=== PATIENT | female | born 1955 | race Caucasian/White ===

== ENCOUNTER 2018-01-09 16:38 | Inpatient (IN) | payer OTHER ==
[~2018-01-09] VITALS: Ht 170.2 cm; Wt 117.5 kg
[2018-01-09 18:41] LABS: Basophils # (auto) 0 uL; Basophils % (auto) 0.5 % (0.0-2.0); Eosinophils # (auto) 0.1 uL; Nucleated Red Blood Cells % 0.1 %
[2018-01-09 18:43] LABS: Eosinophils % (auto) 0.9 % (0.0-7.0); Hematocrit 38.5 % (36.0-46.0); Hemoglobin 13.5 g/dL (12.2-16.2); Lymphocytes # (auto) 1.6 uL; Lymphocytes % (auto) 14.9 % (10.0-50.0); Mean Corpuscular Hemoglobin 34.5 pg (28.0-32.0); Mean Corpuscular Volume 98.6 fL (80.0-100.0); Monocytes % (auto) 9.7 % (0.0-12.0); Neutrophils # (auto) 7.8 uL; Platelet Count (auto) 144 10^3/uL (140-450); White Blood Cell 10.5 10^3/uL (4.4-10.8)
[2018-01-09 18:53] LABS: Alanine Aminotransferase 35 U/L (13-56); Albumin 3.8 g/dL (3.4-5.0); Anion Gap 13 (5-15); Aspartate Aminotransferase 31 U/L (15-37); BUN/Creatinine Ratio 22.5; Blood Urea Nitrogen 20 mg/dL (7-18); Calcium 9.1 mg/dL (8.5-10.1); Carbon Dioxide 22 mmol/L (21-32); Chloride 107 mmol/L (98-107); GFR African American 83 mL/min; GFR Non-African American 68 mL/min; Glucose 88 mg/dL (74-106); Magnesium 2.1 mg/dL (1.6-2.6); Potassium 3.4 mmol/L (3.5-5.1); Sodium 142 mmol/L (136-145)
[2018-01-09 18:58] LABS: Alkaline Phosphatase 128 U/L (45-117); Bilirubin, Total 1.2 mg/dL (0.2-1.0); Total Protein 7.9 g/dL (6.4-8.2)
[2018-01-09] MEDS ORDERED: ONDANSETRON HCL 4 MG/2 ML VIAL IV ONE (21:15)
[2018-01-09] MEDS ORDERED: MORPHINE SULFATE 8mg/ml INJ SDV IV ONE (21:15)
[2018-01-09] MEDS ORDERED: KETOROLAC TROMETH 30 MG/ML 1ML VIAL ONE (21:21)
[2018-01-09] MEDS ORDERED: DOCUSATE SOD 100 MG CAP PO PRN (21:30)
[2018-01-09] MEDS ORDERED: MORPHINE SULF(PF) 0.5MG/ML 10ML VIAL IV PRN (21:30)
[2018-01-09] MEDS ORDERED: ONDANSETRON HCL 4 MG/2 ML VIAL IV PRN (21:30)
[2018-01-09] MEDS ORDERED: NITROGLYCERIN 0.4 MG SL TAB SL PRN (21:30)
[2018-01-09] MEDS ORDERED: TEMAZEPAM 15 MG CAP PO PRN (21:30)
[2018-01-09] MEDS ORDERED: ACETAMINOPHEN 325 MG TAB PO PRN (21:30)
[2018-01-09] MEDS: METOPROLOL TARTRATE 50 MG TAB PO SCH ×2 (21:40→22:31)
[2018-01-09] MEDS ORDERED: KETOROLAC TROMETH 30 MG/ML 1ML VIAL IV ONE (21:45)
[2018-01-09] MEDS: GEMFIBROZIL 600 MG TAB PO SCH (21:51)
[2018-01-09] MEDS: ENOXAPARIN SOD 40 MG/0.4 ML SYRINGE SC SCH (21:52)
[2018-01-09] MEDS: FAMOTIDINE 20 MG TAB PO SCH (21:52)
[2018-01-09] MEDS ORDERED: CARVEDILOL 3.125 MG TAB PO SCH (22:00)
[2018-01-09 22:13] LABS: Cholesterol 173 mg/dL (< 200); HDL Cholesterol 40 mg/dL (40-59); LDL Cholesterol 118 mg/dL (< 100); Triglycerides 154 mg/dL (< 150)
[2018-01-09 23:28] VITALS: BP 128/68
[2018-01-10] MEDS ORDERED: POTA10TA51 PO (00:05)
[2018-01-10] MEDS ORDERED: METO-158 PO (00:05)
[2018-01-10] MEDS ORDERED: HYDR25TA4 PO (00:05)
[2018-01-10] MEDS ORDERED: CHOL20007 PO (00:05)
[2018-01-10] MEDS ORDERED: GEMF600T3 PO (00:05)
[2018-01-10] MEDS ORDERED: SIMV-8 PO (00:05)
[2018-01-10] MEDS ORDERED: LEVO137T3 PO (00:05)
[2018-01-10] MEDS ORDERED: FLUO-125 PO (00:05)
[2018-01-10] MEDS: HYDROcodone-ACET 5/325MG TAB PO PRN ×4 (04:23→21:52)
[2018-01-10 04:52] VITALS: BP 104/58
[2018-01-10 06:06] LABS: Basophils # (auto) 0 uL; Eosinophils # (auto) 0.1 uL; Lymphocytes # (auto) 1.6 uL; Mean Corpuscular Hgb Conc. 34.4 g/dL (32.0-36.0); Monocytes # (auto) 0.7 uL; Red Blood Cells 3.78 10^6/uL (4.0-5.20); Red Cell Distribution Width 12.9 % (11.8-14.3)
[2018-01-10 06:09] LABS: Basophils % (auto) 0.4 % (0.0-2.0); Eosinophils % (auto) 1.5 % (0.0-7.0); Hematocrit 37.6 % (36.0-46.0); Hemoglobin 12.9 g/dL (12.2-16.2); Lymphocytes % (auto) 22.1 % (10.0-50.0); Mean Corpuscular Hemoglobin 34.2 pg (28.0-32.0); Mean Corpuscular Volume 99.3 fL (80.0-100.0); Monocytes % (auto) 9.3 % (0.0-12.0); Neutrophils # (auto) 4.8 uL; Neutrophils % (auto) 66.7 % (37.0-80.0); Nucleated Red Blood Cells % 0.1 %; Platelet Count (auto) 140 10^3/uL (140-450); White Blood Cell 7.2 10^3/uL (4.4-10.8)
[2018-01-10 06:21] LABS: Albumin 3.4 g/dL (3.4-5.0); Potassium 3.3 mmol/L (3.5-5.1)
[2018-01-10] MEDS: LEVOTHYROXINE SODIUM 112 MCG TAB PO SCH (06:35)
[2018-01-10] MEDS: LEVOTHYROXINE SODIUM 25 MCG TAB PO SCH (06:36)
[2018-01-10 06:46] LABS: Bilirubin, Total 1.1 mg/dL (0.2-1.0); Total Protein 7.2 g/dL (6.4-8.2)
[2018-01-10 08:00] VITALS: BP 111/68
[2018-01-10 08:44] VITALS: BP 111/68
[2018-01-10] MEDS: HCTZ 25 MG TAB PO SCH (09:31)
[2018-01-10] MEDS: FAMOTIDINE 20 MG TAB PO SCH ×2 (09:32→21:51)
[2018-01-10] MEDS: GEMFIBROZIL 600 MG TAB PO SCH ×2 (09:32→21:51)
[2018-01-10] MEDS: ASPirin 81 mg TAB PO SCH (09:32)
[2018-01-10] MEDS: METOPROLOL TARTRATE 50 MG TAB PO SCH ×2 (09:32→21:54)
[2018-01-10] MEDS ORDERED: LISINOPRIL 10 MG TAB PO SCH (10:00)
[2018-01-10] MEDS ORDERED: POTASSIUM CHL 20 Meq TABLET PO ONE (10:30)
[2018-01-10 12:34] VITALS: BP 120/74
[2018-01-10 17:00] VITALS: BP 105/52
[2018-01-10 21:45] VITALS: BP_SYST 100; BP_SYST 101; BP_DIAS 59
[2018-01-10] MEDS: ENOXAPARIN SOD 40 MG/0.4 ML SYRINGE SC SCH (21:51)
[2018-01-11 05:00] VITALS: BP 108/70
[2018-01-11] MEDS: LEVOTHYROXINE SODIUM 25 MCG TAB PO SCH (06:14)
[2018-01-11] MEDS: HYDROcodone-ACET 5/325MG TAB PO PRN ×2 (06:14→10:41)
[2018-01-11] MEDS: LEVOTHYROXINE SODIUM 112 MCG TAB PO SCH (06:15)
[2018-01-11 09:00] VITALS: BP 95/43
[2018-01-11 09:18] LABS: BUN/Creatinine Ratio 24.6; Calcium 9.6 mg/dL (8.5-10.1); Potassium 4.2 mmol/L (3.5-5.1)
[2018-01-11] MEDS: HCTZ 25 MG TAB PO SCH (10:00)
[2018-01-11] MEDS: FAMOTIDINE 20 MG TAB PO SCH (10:37)
[2018-01-11] MEDS: METOPROLOL TARTRATE 50 MG TAB PO SCH (10:38)
[2018-01-11] MEDS: ASPirin 81 mg TAB PO SCH (10:40)
[2018-01-11] MEDS: GEMFIBROZIL 600 MG TAB PO SCH (10:42)
[2018-01-11 13:00] VITALS: BP 110/71
== END 2018-01-11 12:55 | disposition home or self-care (01) | DRG 313 ==
LOC: EDBD 16:38 → ER 16:38 → TELE 16:39 → TELE-WESTW 22:50
PROVIDERS: ADMIT Nurse Practitioner; ATTEND Internal Medicine
DX: R07.89 Other chest pain (principal); Z68.41 Body mass index [BMI] 40.0-44.9, adult; E03.9 Hypothyroidism, unspecified; E66.9 Obesity, unspecified; E78.5 Hyperlipidemia, unspecified; I10 Essential (primary) hypertension; M10.9 Gout, unspecified; M54.9 Dorsalgia, unspecified; Z88.0 Allergy status to penicillin; Z79.899 Other long term (current) drug therapy; Z98.51 Tubal ligation status
CPT/HCPCS: 36415; 71045; 80048; 80053; 80061; 83735; 83880; 84443; 84484; 85025; 85379; 93306; 94761; 96374; 96375; J1885; J2405

== ENCOUNTER → 2022-10-31 | Outpatient (CLI) | payer OTHER ==
[~2022-10-31] MED LIST: CHOL20007 PO; FLUO-125 PO; GEMF-19 PO; HYDR25TA4 PO; LEVO137T3 PO; METO-158 PO; POTA10TA51 PO; SIMV-8 PO
[2022-10-31 08:52] LABS: Basophils # (auto) 0.1 10 ^3/uL (0-0.2); Basophils % (auto) 0.8 % (0.0-2.0); Eosinophils # (auto) 0.1 10 ^3/uL (0-0.8); Eosinophils % (auto) 0.7 % (0.0-7.0); Hematocrit 47.4 % (36.0-46.0); Hemoglobin 16.1 g/dL (12.2-16.2); Lymphocytes # (auto) 1.8 10 ^3/uL (0.4-5.4); Lymphocytes % (auto) 25.4 % (10.0-50.0); Mean Corpuscular Hemoglobin 33.6 pg (28.0-32.0); Monocytes # (auto) 0.6 10 ^3/uL (0-1.3); Neutrophils # (auto) 4.6 10 ^3/uL (1.6-8.6); Neutrophils % (auto) 64.1 % (37.0-80.0); Nucleated Red Blood Cells % 0.6 %; Red Blood Cells 4.78 10^6/uL (4.0-5.20); Red Cell Distribution Width 13.5 % (11.8-14.3); White Blood Cell 7.1 10^3/uL (4.4-10.8)
[2022-10-31 08:56] LABS: Urine Bacteria NONE SEEN /hpf (None Seen); Urine Blood Negative /uL (Negative); Urine Hyaline Cast FEW /lpf (0 - 2); Urine Mucus FEW (None Seen); Urine Specific Gravity 1.027 (1.001-1.035); Urine WBC 16 /hpf (0 - 5)
[2022-10-31 09:38] LABS: Albumin 3.6 g/dL (3.4-5.0); Calcium 9.8 mg/dL (8.5-10.1); Potassium 4.7 mmol/L (3.5-5.1)
[2022-10-31 09:43] LABS: BUN/Creatinine Ratio 20.7 (10.0-20.0); Bilirubin, Total 0.9 mg/dL (0.2-1.0)
== END | disposition home or self-care (01) ==
LOC: LAB 08:15
PROVIDERS: ATTEND Internal Medicine
DX: I10 Essential (primary) hypertension (principal); E78.00 Pure hypercholesterolemia, unspecified; R73.9 Hyperglycemia, unspecified; E03.9 Hypothyroidism, unspecified; R94.5 Abnormal results of liver function studies
CPT/HCPCS: 36415; 80053; 80061; 81001; 83036; 84443; 85025; 87086

== ENCOUNTER → 2023-08-23 | Outpatient (CLI) | payer OTHER ==
[~2023-08-23] MED LIST changes: -GEMF-19 PO; +GEMF-66 PO; -SIMV-8 PO; +SIMV20TA20 PO
[2023-08-23 07:45] LABS: Basophils # (auto) 0 10 ^3/uL (0-0.2); Basophils % (auto) 0.4 % (0.0-2.0); Eosinophils # (auto) 0.1 10 ^3/uL (0-0.8); Eosinophils % (auto) 0.6 % (0.0-7.0); Hematocrit 48.1 % (36.0-46.0); Hemoglobin 16.1 g/dL (12.2-16.2); Lymphocytes # (auto) 1.8 10 ^3/uL (0.4-5.4); Mean Corpuscular Hemoglobin 32.3 pg (28.0-32.0); Mean Corpuscular Hgb Conc. 33.4 g/dL (32.0-36.0); Mean Corpuscular Volume 96.7 fL (80.0-100.0); Monocytes # (auto) 0.7 10 ^3/uL (0-1.3); Monocytes % (auto) 8.4 % (0.0-12.0); Neutrophils # (auto) 6.1 10 ^3/uL (1.6-8.6); Neutrophils % (auto) 69.6 % (37.0-80.0); Nucleated Red Blood Cells % 0.1 %; Red Blood Cells 4.97 10^6/uL (4.0-5.20); White Blood Cell 8.8 10^3/uL (4.4-10.8)
[2023-08-23 08:09] LABS: Alanine Aminotransferase 29 U/L (7-40); Albumin 4.4 g/dL (3.2-4.8); Alkaline Phosphatase 62 U/L (46-116); Anion Gap 4 (5-15); Aspartate Aminotransferase 39 U/L (13-40); BUN/Creatinine Ratio 10.4 (10.0-20.0); Blood Urea Nitrogen 11 mg/dL (9-23); Calcium 9.7 mg/dL (8.5-10.1); Carbon Dioxide 31 mmol/L (20-30); Chloride 102 mmol/L (98-107); Glucose 120 mg/dL (74-106); LDL Cholesterol 121 mg/dL (< 100); Potassium 4.6 mmol/L (3.5-5.1); Sodium 137 mmol/L (136-145); Triglycerides 139 mg/dL (< 150)
[2023-08-23 08:10] LABS: Bilirubin, Total 0.9 mg/dL (0.2-1.0); Cholesterol 172 mg/dL (< 200); HDL Cholesterol 37 mg/dL (40-59)
[2023-08-24 08:06] LABS: Free Thyroxine Index 2.9 (1.2-4.9); Thyroxine (T4) 9.5 ug/dL (4.5-12.0)
== END | disposition home or self-care (01) ==
LOC: LAB 07:24
PROVIDERS: ATTEND Internal Medicine
DX: I10 Essential (primary) hypertension (principal); R73.9 Hyperglycemia, unspecified; E78.00 Pure hypercholesterolemia, unspecified; E03.9 Hypothyroidism, unspecified
CPT/HCPCS: 36415; 80053; 80061; 83036; 84443; 85025

== ENCOUNTER 2023-08-24 10:06 | Inpatient (IN) | payer OTHER ==
[~2023-08-24] VITALS: Ht 167.6 cm; Wt 146.0 kg
[2023-08-24] VITALS (25 sets, daily range): BP systolic 114–140; BP diastolic 60–71; PULSE 71–84; RESP 15–23; TEMP 99.9–100.2; O2SAT 93–100
[2023-08-24] MEDS: EPINEPHrine HCL 250 ML IV ONE (10:11)
[2023-08-24] MEDS: SODIUM BICARB 8.4% 50Meq/50ml SYR INJ ONE (10:11)
[2023-08-24] MEDS: EPINEPHrine HCL 250 ML IV SCH (10:30)
[2023-08-24] MEDS: MIDAZOLAM DRIP 50 mg/50mL 50 ML IV ONE (10:34)
[2023-08-24] MEDS: MIDAZOLAM DRIP 50 mg/50mL 50 ML IV SCH (10:42)
[2023-08-24] MEDS: NOREPINEPHRINE 8 MG/250ML KIT 250 ML IV ONE (11:15)
[2023-08-24] MEDS: NOREPINEPHRINE 8 MG/250ML KIT 250 ML IV SCH (11:15)
[2023-08-24 11:24] LABS: Basophils # (auto) 0.1 10 ^3/uL (0-0.2); Basophils % (auto) 0.4 % (0.0-2.0); Eosinophils # (auto) 0.1 10 ^3/uL (0-0.8); Eosinophils % (auto) 0.4 % (0.0-7.0); Hemoglobin 15.9 g/dL (12.2-16.2); Lymphocytes # (auto) 5.4 10 ^3/uL (0.4-5.4); Lymphocytes % (auto) 25.3 % (10.0-50.0); Mean Corpuscular Hemoglobin 32.1 pg (28.0-32.0); Mean Corpuscular Hgb Conc. 31.8 g/dL (32.0-36.0); Mean Corpuscular Volume 100.9 fL (80.0-100.0); Monocytes # (auto) 0.8 10 ^3/uL (0-1.3); Monocytes % (auto) 3.9 % (0.0-12.0); Nucleated Red Blood Cells % 0.2 %; Red Blood Cells 4.95 10^6/uL (4.0-5.20); Red Cell Distribution Width 14.4 % (11.8-14.3); White Blood Cell 21.4 10^3/uL (4.4-10.8)
[2023-08-24 11:36] LABS: Base Excess -2.9 mmol/L (-2.0-2.0)
[2023-08-24 11:38] LABS: INR 1.23 (0.9-1.15); Partial Thromboplastin Time 28.5 SEC (24.5-34.5); Prothrombin Time 12.7 sec (9.3-11.8)
[2023-08-24 11:39] LABS: Alanine Aminotransferase 63 U/L (7-40); Albumin 3.9 g/dL (3.2-4.8); Alkaline Phosphatase 69 U/L (46-116); Anion Gap 15 (5-15); Aspartate Aminotransferase 127 U/L (13-40); BUN/Creatinine Ratio 14.2 (10.0-20.0); Bilirubin, Total 0.8 mg/dL (0.2-1.0); Blood Urea Nitrogen 19 mg/dL (9-23); Calcium 9.8 mg/dL (8.5-10.1); Carbon Dioxide 24 mmol/L (20-30); Chloride 100 mmol/L (98-107); Glucose 311 mg/dL (74-106); Potassium 4.6 mmol/L (3.5-5.1); Sodium 139 mmol/L (136-145); Total Protein 5.8 g/dL (5.7-8.2)
[2023-08-24] MEDS: PIPERACILLIN-TAZOB 3.375GM 100 ML IV ONE (11:56)
[2023-08-24] MEDS: SODIUM CHLORIDE 0.9% 1,000 ML IV ONE ×3 (12:00→16:15)
[2023-08-24] MEDS: AZITHROMYCIN 500MG/ 250ML 250 ML IV ONE (12:26)
[2023-08-24] MEDS: PROPOFOL 100 ML IV ONE (13:37)
[2023-08-24] MEDS: PROPOFOL 100 ML IV SCH (13:45)
[2023-08-24] MEDS: IOHEXOL 350 MG/ML 100ML IJ ONE (13:47)
[2023-08-24] MEDS ORDERED: VANCOMYCIN PER PHARMACY 0 MG IV SCH (14:15)
[2023-08-24] MEDS ORDERED: LORazepam 2MG/ML-1ML VIAL IV PRN (14:15)
[2023-08-24] MEDS ORDERED: DEXTROSE (50%) 50ML SYRG IV PRN (14:15)
[2023-08-24] MEDS: SODIUM CHLORIDE 0.9% 1,000 ML IV SCH (14:15)
[2023-08-24] MEDS ORDERED: MORPHINE SULFATE INJ 2 MG/ml SYRG IV PRN (15:00)
[2023-08-24] MEDS: PANTOPRAZOLE 40 MG/10 ML VIAL INJ IV ONE (15:00)
[2023-08-24] MEDS ORDERED: ONDANSETRON HCL 4 MG/2 ML VIAL IV PRN (15:00)
[2023-08-24] MEDS: ASPirin 325 MG TAB GT ONE (15:00)
[2023-08-24] MEDS ORDERED: DOCUSATE SOD 100 MG CAP PO PRN (15:00)
[2023-08-24 15:07] LABS: Base Excess -2.5 mmol/L (-2.0-2.0)
[2023-08-24] MEDS: HEPARIN SODIUM (PORCINE) 5000 UNITS/ML 1ML VIAL ONE (15:37)
[2023-08-24] MEDS: HEPARIN SODIUM (PORCINE) 5000 UNITS/ML 1ML VIAL IV ONE (15:45)
[2023-08-24] MEDS: HEPARIN DRIP/D5W 100UNITS/ML 250 ML IV SCH (15:47)
[2023-08-24] MEDS: VANCOMYCIN 1GM/200ML 200 ML IV ONE (16:07)
[2023-08-24] MEDS: IODIXANOL 320MG/ML 100ML BTL IV ONE ×5 (16:08→17:52)
[2023-08-24] MEDS: LIDOCAINE 2%HCL (LOCAL ANESTH.) INJ 20ML MDV ONE (16:08)
[2023-08-24] MEDS: ACETYLCYSTEINE ORAL for CIN 20%(200MG/ML) 4ML PO ONE (16:15)
[2023-08-24] MEDS: CLOPIDOGREL 300 MG TAB PO ONE (16:15)
[2023-08-24] MEDS: SODIUM CHL 0.9% 50 ML ONE ×2 (16:20→17:33)
[2023-08-24] MEDS: ANGIOMAX 250 MG VIAL IV ONE ×2 (16:20→17:33)
[2023-08-24] MEDS: MEROPENEM 1GM IVPB 50 ML IV ONE (17:00)
[2023-08-24 17:04] LABS: Blood Alcohol < 3.0 mg/dL (<10); LDL Cholesterol 109 mg/dL (< 100); Triglycerides 153 mg/dL (< 150)
[2023-08-24 17:06] LABS: Cholesterol 157 mg/dL (< 200); HDL Cholesterol 30 mg/dL (40-59)
[2023-08-24] MEDS: ATROPINE SULF 1 MG/10ml SYR ONE (17:09)
[2023-08-24] MEDS: InsuLIN REG 1unit/0.01ml Soln (100units/ml) SC SCH (18:00)
[2023-08-24] MEDS: CLOPIDOGREL 300 MG TAB ONE (18:10)
[2023-08-24] MEDS: ACCU-CHEK COMFORT CURVE STRIP VI SCH (19:00)
[2023-08-24 20:30] LABS: INR 5.08 (0.9-1.15)
[2023-08-24] MEDS: ACETYLCYSTEINE ORAL for CIN 20%(200MG/ML) 4ML PO SCH (22:19)
[2023-08-24] MEDS: MEROPENEM 1GM IVPB 50 ML IV SCH (22:19)
[2023-08-24 22:25] LABS: INR 1.96 (0.9-1.15); Partial Thromboplastin Time 59.3 SEC (24.5-34.5); Prothrombin Time 19.7 sec (9.3-11.8)
[2023-08-25] VITALS (106 sets, daily range): BP systolic 89–130; BP diastolic 39–70; PULSE 73–102; RESP 14–26; TEMP 98.2–100.2; O2SAT 92–100
[2023-08-25 00:42] LABS: Chloride 103 mmol/L (98-107); Sodium 136 mmol/L (136-145)
[2023-08-25 00:43] LABS: Anion Gap 9 (5-15); Carbon Dioxide 24 mmol/L (20-30)
[2023-08-25 00:44] LABS: Calcium 8.3 mg/dL (8.7-10.4)
[2023-08-25 00:48] LABS: BUN/Creatinine Ratio 8.5 (10.0-20.0); Blood Urea Nitrogen 20 mg/dL (9-23); Glucose 171 mg/dL (74-106)
[2023-08-25 01:00] LABS: Lactic Acid w/Reflex 3.4 mmol/L (0.4-2.0)
[2023-08-25 04:24] LABS: INR 1.3 (0.9-1.15); Partial Thromboplastin Time 40.6 SEC (24.5-34.5); Prothrombin Time 13.4 sec (9.3-11.8)
[2023-08-25 04:27] LABS: Alanine Aminotransferase 61 U/L (7-40); Albumin 3.5 g/dL (3.2-4.8); Alkaline Phosphatase 44 U/L (46-116); Anion Gap 13 (5-15); Aspartate Aminotransferase 204 U/L (13-40); Bilirubin, Total 0.6 mg/dL (0.2-1.0); Blood Urea Nitrogen 20 mg/dL (9-23); Calcium 8.3 mg/dL (8.7-10.4); Carbon Dioxide 22 mmol/L (20-30); Chloride 102 mmol/L (98-107); Glucose 155 mg/dL (74-106); Hemoglobin 14.5 g/dL (12.2-16.2); Mean Corpuscular Hemoglobin 32.1 pg (28.0-32.0); Mean Corpuscular Hgb Conc. 32.2 g/dL (32.0-36.0); Mean Corpuscular Volume 99.9 fL (80.0-100.0); Potassium 3.8 mmol/L (3.5-5.1); Red Cell Distribution Width 14.5 % (11.8-14.3); Sodium 137 mmol/L (136-145); Total Protein 5.7 g/dL (5.7-8.2); White Blood Cell 26.4 10^3/uL (4.4-10.8)
[2023-08-25 04:33] LABS: Basophils % (manual) 0 (0.0-2.0); Blast Cells 0; Eosinophils % (manual) 0 (0-7); Myelocytes % 0; Promyelocytes % 0; Reactive Lymphocytes 0
[2023-08-25 04:45] LABS: Cholesterol 131 mg/dL (< 200); HDL Cholesterol 26 mg/dL (40-59); LDL Cholesterol 69 mg/dL (< 100); Triglycerides 358 mg/dL (< 150)
[2023-08-25] MEDS ORDERED: HEPARIN DRIP/D5W 100UNITS/ML 250 ML IV SCH (04:45)
[2023-08-25 04:48] LABS: Lactic Acid w/Reflex 4.5 mmol/L (0.4-2.0)
[2023-08-25 08:20] LABS: Band Neutrophils % (manual) 12; Lymphocytes % (manual) 18 (10.0-50.0); Metamyelocytes % 2; Monocytes % (manual) 6 (0-12); Platelet Estimate Adequate
[2023-08-25 09:16] LABS: Base Excess -2.9 mmol/L (-2.0-2.0)
[2023-08-25] MEDS: PANTOPRAZOLE 40 MG/10 ML VIAL INJ IV SCH (09:57)
[2023-08-25] MEDS: LEVOTHYROXINE SODIUM 25 MCG TAB PO SCH (09:58)
[2023-08-25] MEDS: ASPirin 81 mg TAB PO SCH (09:58)
[2023-08-25] MEDS: CLOPIDOGREL BISULFATE 75 MG TAB PO SCH (09:58)
[2023-08-25] MEDS: LEVOTHYROXINE SODIUM 112 MCG TAB PO SCH (09:58)
[2023-08-25] MEDS ORDERED: PATIENTS OWN MEDICATION (Levothyroxine Sodium 1 TAB) PO SCH (10:00)
[2023-08-25] MEDS: VANCOMYCIN 1GM/200ML 200 ML IV SCH (10:01)
[2023-08-25 11:02] LABS: Chloride 102 mmol/L (98-107); Potassium 4.1 mmol/L (3.5-5.1); Sodium 137 mmol/L (136-145)
[2023-08-25 11:03] LABS: Anion Gap 11 (5-15); Calcium 8.6 mg/dL (8.5-10.1); Carbon Dioxide 24 mmol/L (20-30)
[2023-08-25 11:08] LABS: BUN/Creatinine Ratio 7.2 (10.0-20.0); Blood Urea Nitrogen 20 mg/dL (9-23); Glucose 127 mg/dL (74-106)
[2023-08-25 11:22] LABS: INR 1.19 (0.9-1.15); Partial Thromboplastin Time 28.1 SEC (24.5-34.5); Prothrombin Time 12.4 sec (9.3-11.8)
[2023-08-25 11:28] LABS: Lactic Acid w/Reflex 4.3 mmol/L (0.4-2.0)
[2023-08-25] MEDS: FOLIC ACID 1 MG, MULTIPLE VITAMIN 10 ML, MAGNESIUM SULF SDV 50% 8 MEQ, THIAMINE INJ 100... INJ SCH (11:40)
[2023-08-25] MEDS: HEPARIN SODIUM (PORCINE) 5000 UNITS/ML 1ML VIAL SC ONE (11:58)
[2023-08-25 12:08] LABS: Magnesium 1.7 mg/dL (1.6-2.6)
[2023-08-25 13:00] LABS: Urine Bacteria NONE SEEN /hpf (None Seen); Urine Blood 3+ /uL (Negative); Urine Clarity HAZY (Clear); Urine Color Yellow (Yellow); Urine Protein, UAD 2+ (Negative); Urine Urobilinogen Normal (Negative); Urine WBC 23 /hpf (0 - 5); Urine pH 5.5 (5.0-8.0)
[2023-08-25 13:05] LABS: Amphetamine Screen, Urine Neg (NEGATIVE); Barbiturate Scree,Urine Neg (NEGATIVE); Benzodiazephine Screen, Urine Pos (NEGATIVE); Cocaine Screen, Urine Neg (NEGATIVE)
[2023-08-25 13:06] LABS: Cannabinoid Screen, Urine Pos (NEGATIVE); Opiate Scree,Urine Neg (NEGATIVE); Phencyclidine Screen, Urine Neg (NEGATIVE)
[2023-08-25 13:08] LABS: Urine Specific Gravity > 1.050 (1.001-1.035)
[2023-08-25] MEDS: FUROSEMIDE 100 MG/10ML VIAL IV ONE (13:53)
[2023-08-25] MEDS ORDERED: FENO145T27 PO (15:01)
[2023-08-25 18:02] LABS: Basophils # (auto) 0.1 10 ^3/uL (0-0.2); Basophils % (auto) 0.4 % (0.0-2.0); Eosinophils # (auto) 0 10 ^3/uL (0-0.8); Eosinophils % (auto) 0.1 % (0.0-7.0); Hematocrit 40.4 % (36.0-46.0); Hemoglobin 13.2 g/dL (12.2-16.2); Lymphocytes # (auto) 1.6 10 ^3/uL (0.4-5.4); Lymphocytes % (auto) 8.8 % (10.0-50.0); Mean Corpuscular Hemoglobin 32.1 pg (28.0-32.0); Mean Corpuscular Hgb Conc. 32.8 g/dL (32.0-36.0); Mean Corpuscular Volume 97.9 fL (80.0-100.0); Monocytes # (auto) 1.8 10 ^3/uL (0-1.3); Monocytes % (auto) 10.3 % (0.0-12.0); Neutrophils # (auto) 14.1 10 ^3/uL (1.6-8.6); Neutrophils % (auto) 80.4 % (37.0-80.0); Nucleated Red Blood Cells % 0.1 %; Red Blood Cells 4.12 10^6/uL (4.0-5.20); Red Cell Distribution Width 14.2 % (11.8-14.3); White Blood Cell 17.6 10^3/uL (4.4-10.8)
[2023-08-25 18:23] LABS: Alanine Aminotransferase 49 U/L (7-40); Albumin 3.3 g/dL (3.2-4.8); Alkaline Phosphatase 42 U/L (46-116); Anion Gap 9 (5-15); Aspartate Aminotransferase 163 U/L (13-40); BUN/Creatinine Ratio 7.5 (10.0-20.0); Blood Urea Nitrogen 24 mg/dL (9-23); Carbon Dioxide 24 mmol/L (20-30); Chloride 102 mmol/L (98-107); Glucose 131 mg/dL (74-106); Lipase 33 U/L (12-53); Magnesium 1.8 mg/dL (1.6-2.6); Sodium 135 mmol/L (136-145)
[2023-08-25 18:24] LABS: Bilirubin, Total 0.6 mg/dL (0.2-1.0); Total Protein 5.4 g/dL (5.7-8.2)
[2023-08-25 19:32] LABS: CRP High Sensitivity 6.19 mg/dL (<1.0)
[2023-08-25] MEDS: NYSTATIN TOPICAL POWDER 15GM TOP SCH (22:12)
[2023-08-25] MEDS: MEROPENEM 1GM IVPB 50 ML IV SCH (22:12)
[2023-08-25] MEDS: HEPARIN SODIUM (PORCINE) 5000 UNITS/ML 1ML VIAL SC SCH (22:17)
[2023-08-26] VITALS (107 sets, daily range): BP systolic 99–129; BP diastolic 43–65; PULSE 80–99; RESP 19–21; TEMP 96.4–98.6; O2SAT 93–97
[2023-08-26 04:18] LABS: Basophils # (auto) 0 10 ^3/uL (0-0.2); Basophils % (auto) 0.1 % (0.0-2.0); Eosinophils # (auto) 0.1 10 ^3/uL (0-0.8); Eosinophils % (auto) 0.3 % (0.0-7.0); Hemoglobin 12.8 g/dL (12.2-16.2); Lymphocytes % (auto) 10.9 % (10.0-50.0); Mean Corpuscular Hemoglobin 31.8 pg (28.0-32.0); Mean Corpuscular Hgb Conc. 32.8 g/dL (32.0-36.0); Monocytes # (auto) 1.8 10 ^3/uL (0-1.3); Monocytes % (auto) 9.9 % (0.0-12.0); Neutrophils # (auto) 14.1 10 ^3/uL (1.6-8.6); Neutrophils % (auto) 78.8 % (37.0-80.0); Red Blood Cells 4.02 10^6/uL (4.0-5.20); Red Cell Distribution Width 14.5 % (11.8-14.3); White Blood Cell 17.9 10^3/uL (4.4-10.8)
[2023-08-26 04:34] LABS: Alanine Aminotransferase 42 U/L (7-40); Albumin 3.3 g/dL (3.2-4.8); Alkaline Phosphatase 43 U/L (46-116); Anion Gap 9 (5-15); Aspartate Aminotransferase 138 U/L (13-40); BUN/Creatinine Ratio 7.7 (10.0-20.0); Bilirubin, Total 0.6 mg/dL (0.2-1.0); Blood Urea Nitrogen 28 mg/dL (9-23); Calcium 8.1 mg/dL (8.7-10.4); Carbon Dioxide 24 mmol/L (20-30); Chloride 102 mmol/L (98-107); Glucose 106 mg/dL (74-106); Lipase 29 U/L (12-53); Magnesium 1.9 mg/dL (1.6-2.6); Potassium 3.7 mmol/L (3.5-5.1); Sodium 135 mmol/L (136-145); Total Protein 5.4 g/dL (5.7-8.2)
[2023-08-26 04:55] LABS: CRP High Sensitivity 6.26 mg/dL (<1.0)
[2023-08-26 05:14] LABS: Base Excess -1.5 mmol/L (-2.0-2.0)
[2023-08-26] MEDS: FUROSEMIDE 40 MG/4 ML VIAL IV ONE (08:24)
[2023-08-26] MEDS: THIAMINE 100mg/ml INJ (200mg/2ml VIAL) IV SCH (09:44)
[2023-08-26] MEDS: VANCOMYCIN 1GM/200ML 200 ML IV ONE (09:44)
[2023-08-26] MEDS: MULTIPLE VITAMINS W/ MINERALS TAB GT SCH (09:45)
[2023-08-26] MEDS: FOLIC ACID 1 MG in D5W 5% 50 ML INJ SCH (09:46)
[2023-08-26] MEDS: POTASSIUM CHL 20MEQ/100ML 100 ML IV SCH (09:46)
[2023-08-26 10:23] LABS: Base Excess -3.3 mmol/L (-2.0-2.0)
[2023-08-26] MEDS: MAGNESIUM SULFATE 1GM/100ML 100 ML IV SCH (11:00)
[2023-08-26] MEDS: FUROSEMIDE 40 MG/4 ML VIAL IV SCH (13:28)
[2023-08-27] VITALS (103 sets, daily range): BP systolic 101–125; BP diastolic 28–66; PULSE 84–96; RESP 12–26; TEMP 97.2–98.4; O2SAT 92–99
[2023-08-27] MEDS: fentaNYL Drip 2500mCg/250mlNS 250 ML IV SCH (00:35)
[2023-08-27 04:37] LABS: Basophils # (auto) 0 10 ^3/uL (0-0.2); Basophils % (auto) 0.2 % (0.0-2.0); Eosinophils # (auto) 0.1 10 ^3/uL (0-0.8); Eosinophils % (auto) 0.6 % (0.0-7.0); Hematocrit 37.2 % (36.0-46.0); Lymphocytes % (auto) 7.1 % (10.0-50.0); Mean Corpuscular Hemoglobin 31.8 pg (28.0-32.0); Mean Corpuscular Hgb Conc. 32.3 g/dL (32.0-36.0); Mean Corpuscular Volume 98.2 fL (80.0-100.0); Monocytes # (auto) 1.1 10 ^3/uL (0-1.3); Monocytes % (auto) 7.4 % (0.0-12.0); Neutrophils # (auto) 12.3 10 ^3/uL (1.6-8.6); Neutrophils % (auto) 84.7 % (37.0-80.0); Red Blood Cells 3.78 10^6/uL (4.0-5.20); Red Cell Distribution Width 14.3 % (11.8-14.3); White Blood Cell 14.5 10^3/uL (4.4-10.8)
[2023-08-27 05:08] LABS: Chloride 99 mmol/L (98-107); Potassium 4.1 mmol/L (3.5-5.1); Sodium 135 mmol/L (136-145)
[2023-08-27 05:11] LABS: Anion Gap 14 (5-15); Carbon Dioxide 22 mmol/L (20-30)
[2023-08-27 05:12] LABS: Calcium 8.3 mg/dL (8.5-10.1)
[2023-08-27 05:16] LABS: BUN/Creatinine Ratio 10.1 (10.0-20.0); Glucose 97 mg/dL (74-106)
[2023-08-27 05:17] LABS: Alkaline Phosphatase 49 U/L (46-116)
[2023-08-27 05:18] LABS: Alanine Aminotransferase 34 U/L (7-40); Albumin 3.2 g/dL (3.2-4.8); Aspartate Aminotransferase 118 U/L (13-40)
[2023-08-27 05:19] LABS: Bilirubin, Total 0.6 mg/dL (0.2-1.0); Total Protein 5.1 g/dL (5.7-8.2)
[2023-08-27 05:27] LABS: CRP High Sensitivity 5.71 mg/dL (<1.0)
[2023-08-27 05:30] LABS: Blood Urea Nitrogen 44 mg/dL (9-23)
[2023-08-27 07:00] LABS: Lipase 48 U/L (12-53); Magnesium 2.1 mg/dL (1.6-2.6)
[2023-08-27 07:02] LABS: Base Excess -2.7 mmol/L (-2.0-2.0)
[2023-08-28] VITALS (109 sets, daily range): BP systolic 82–122; BP diastolic 31–61; PULSE 79–98; RESP 16–25; TEMP 98.4–98.9; O2SAT 92–99
[2023-08-28 04:34] LABS: Chloride 98 mmol/L (98-107); Potassium 4.1 mmol/L (3.5-5.1); Sodium 134 mmol/L (136-145)
[2023-08-28 04:35] LABS: Anion Gap 13 (5-15); Carbon Dioxide 23 mmol/L (20-30)
[2023-08-28 04:36] LABS: Calcium 8.8 mg/dL (8.5-10.1)
[2023-08-28 04:40] LABS: Glucose 72 mg/dL (74-106)
[2023-08-28 04:41] LABS: Alanine Aminotransferase 25 U/L (7-40); Albumin 3.6 g/dL (3.2-4.8); Alkaline Phosphatase 51 U/L (46-116); Anion Gap 13 (5-15); Aspartate Aminotransferase 91 U/L (13-40); BUN/Creatinine Ratio 9.3 (10.0-20.0); Blood Urea Nitrogen 46 mg/dL (9-23); Calcium 8.7 mg/dL (8.5-10.1); Carbon Dioxide 23 mmol/L (20-30); Chloride 98 mmol/L (98-107); Glucose 71 mg/dL (74-106); Sodium 134 mmol/L (136-145)
[2023-08-28 04:42] LABS: Bilirubin, Total 0.7 mg/dL (0.2-1.0); Total Protein 5.9 g/dL (5.7-8.2)
[2023-08-28 07:45] LABS: Basophils # (auto) 0 10 ^3/uL (0-0.2); Basophils % (auto) 0.2 % (0.0-2.0); Eosinophils # (auto) 0.1 10 ^3/uL (0-0.8); Eosinophils % (auto) 1.2 % (0.0-7.0); Hematocrit 35.6 % (36.0-46.0); Hemoglobin 11.9 g/dL (12.2-16.2); Lymphocytes # (auto) 0.8 10 ^3/uL (0.4-5.4); Lymphocytes % (auto) 8.3 % (10.0-50.0); Mean Corpuscular Hemoglobin 32.5 pg (28.0-32.0); Mean Corpuscular Hgb Conc. 33.4 g/dL (32.0-36.0); Mean Corpuscular Volume 97.3 fL (80.0-100.0); Monocytes # (auto) 0.9 10 ^3/uL (0-1.3); Monocytes % (auto) 8.8 % (0.0-12.0); Neutrophils % (auto) 81.5 % (37.0-80.0); Red Blood Cells 3.65 10^6/uL (4.0-5.20); White Blood Cell 9.8 10^3/uL (4.4-10.8)
[2023-08-28 08:55] LABS: Hepatitis B Surface Antigen Negative (Negative)
[2023-08-28 09:15] LABS: Hepatitis C Antibody Negative (Negative)
[2023-08-28 10:08] LABS: Base Excess -3.2 mmol/L (-2.0-2.0)
[2023-08-28] MEDS: DOPamine 1600MCG/ML D5W 250 ML IV SCH (11:32)
[2023-08-28 15:27] LABS: Protein, Urine 53.2 mg/dL (0.0-11.9)
[2023-08-28 15:29] LABS: Urine Protein/Creatinine Ratio 0.77
[2023-08-28] MEDS: LIDOCAINE 1% (LOCAL ANESTH.) PF 5ml SDV ID ONE (15:55)
[2023-08-28] MEDS ORDERED: CLINIMIX PER PHARMACY 0 ML IV SCH (16:00)
[2023-08-28 16:09] LABS: INR 1.01 (0.9-1.15); Partial Thromboplastin Time 29.3 SEC (24.5-34.5); Prothrombin Time 10.6 sec (9.3-11.8)
[2023-08-28] MEDS: BUMETANIDE 2.5mg/10ml (0.25 mg/ml) INJ IV SCH (18:06)
[2023-08-28] MEDS: AMINO ACID INFUSION IN D10W 1,000 ML IV SCH (20:00)
[2023-08-28] MEDS ORDERED: DEXTROSE (50%) 50ML SYRG IV SCH (20:00)
[2023-08-28] MEDS: SODIUM CHLOR 0.9% PF (SALINE LOCK) 10ML VIAL/SYR IV SCH (22:00)
[2023-08-28] MEDS: ATORVASTATIN 20 MG TAB PO SCH (22:52)
[2023-08-28] MEDS: ACCU-CHEK COMFORT CURVE STRIP VI SCH (23:55)
[2023-08-28] MEDS: InsuLIN REG 1unit/0.01ml Soln (100units/ml) SC SCH (23:55)
[2023-08-29] VITALS (105 sets, daily range): BP systolic 86–106; BP diastolic 41–60; PULSE 71–96; RESP 10–24; TEMP 97–99.2; O2SAT 92–97
[2023-08-29 04:16] LABS: Basophils # (auto) 0 10 ^3/uL (0-0.2); Basophils % (auto) 0.1 % (0.0-2.0); Eosinophils # (auto) 0.2 10 ^3/uL (0-0.8); Eosinophils % (auto) 1.8 % (0.0-7.0); Hematocrit 34.8 % (36.0-46.0); Hemoglobin 11.6 g/dL (12.2-16.2); Lymphocytes # (auto) 0.8 10 ^3/uL (0.4-5.4); Lymphocytes % (auto) 8.1 % (10.0-50.0); Mean Corpuscular Hemoglobin 32.2 pg (28.0-32.0); Mean Corpuscular Hgb Conc. 33.2 g/dL (32.0-36.0); Mean Corpuscular Volume 96.8 fL (80.0-100.0); Monocytes # (auto) 0.9 10 ^3/uL (0-1.3); Neutrophils # (auto) 7.6 10 ^3/uL (1.6-8.6); Red Cell Distribution Width 14.3 % (11.8-14.3); White Blood Cell 9.5 10^3/uL (4.4-10.8)
[2023-08-29 04:37] LABS: Alanine Aminotransferase 19 U/L (7-40); Albumin 3.4 g/dL (3.2-4.8); Alkaline Phosphatase 54 U/L (46-116); Anion Gap 13 (5-15); Aspartate Aminotransferase 69 U/L (13-40); BUN/Creatinine Ratio 11.7 (10.0-20.0); Calcium 8.2 mg/dL (8.7-10.4); Carbon Dioxide 22 mmol/L (20-30); Chloride 98 mmol/L (98-107); Glucose 96 mg/dL (74-106); Magnesium 2.3 mg/dL (1.6-2.6); Potassium 3.5 mmol/L (3.5-5.1); Sodium 133 mmol/L (136-145)
[2023-08-29 04:38] LABS: Bilirubin, Total 0.7 mg/dL (0.2-1.0); Blood Urea Nitrogen 61 mg/dL (9-23); Phosphorus 8.3 mg/dL (2.4-5.1); Total Protein 5.6 g/dL (5.7-8.2)
[2023-08-29 05:19] LABS: CRP High Sensitivity 5.38 mg/dL (<1.0)
[2023-08-29 07:40] LABS: Base Excess -3.5 mmol/L (-2.0-2.0)
[2023-08-29 08:07] LABS: Cancer Antigen (CA) 125 35.2 U/mL (0.0-38.1)
[2023-08-29] MEDS: LINEZOLID 600MG/300ML 300 ML IV SCH (09:38)
[2023-08-29] MEDS: CALCIUM GLUC 1,000mg/50ml-NS 50 ML IV ONE (10:16)
[2023-08-29] MEDS: CALCIUM CARB 500 MG CHEW TAB PO SCH (10:26)
[2023-08-29] MEDS: diphenhdrAMINE HCL 50 MG/1 ML VL IV PRN (14:24)
[2023-08-29] MEDS: POTASSIUM CHL 20MEQ/100ML 100 ML IV SCH (14:38)
[2023-08-29] MEDS: CALCIUM ACETATE 667 MG CAP NG SCH (14:39)
[2023-08-29] MEDS: BUMETANIDE INJECTION 12.5 MG in GIVE UN-DILUTED 0 ML IV SCH (16:25)
[2023-08-30] VITALS (107 sets, daily range): BP systolic 85–102; BP diastolic 40–56; PULSE 79–89; RESP 16–24; TEMP 97.7–98.6; O2SAT 93–99
[2023-08-30 04:45] LABS: Basophils # (auto) 0 10 ^3/uL (0-0.2); Eosinophils # (auto) 0.2 10 ^3/uL (0-0.8); Eosinophils % (auto) 1.6 % (0.0-7.0); Hematocrit 35.4 % (36.0-46.0); Lymphocytes # (auto) 0.6 10 ^3/uL (0.4-5.4); Lymphocytes % (auto) 6.2 % (10.0-50.0); Mean Corpuscular Hemoglobin 32.6 pg (28.0-32.0); Mean Corpuscular Hgb Conc. 33.9 g/dL (32.0-36.0); Mean Corpuscular Volume 96.2 fL (80.0-100.0); Monocytes # (auto) 0.8 10 ^3/uL (0-1.3); Neutrophils # (auto) 8.2 10 ^3/uL (1.6-8.6); Neutrophils % (auto) 84.2 % (37.0-80.0); Red Blood Cells 3.68 10^6/uL (4.0-5.20); Red Cell Distribution Width 14.4 % (11.8-14.3); White Blood Cell 9.7 10^3/uL (4.4-10.8)
[2023-08-30 05:07] LABS: Alkaline Phosphatase 58 U/L (46-116); Anion Gap 12 (5-15); BUN/Creatinine Ratio 13.3 (10.0-20.0); Blood Urea Nitrogen 67 mg/dL (9-23); Calcium 8.8 mg/dL (8.7-10.4); Carbon Dioxide 22 mmol/L (20-30); Chloride 97 mmol/L (98-107); Glucose 107 mg/dL (74-106); Lipase 300 U/L (12-53); Magnesium 2.2 mg/dL (1.6-2.6); Potassium 3.6 mmol/L (3.5-5.1); Sodium 131 mmol/L (136-145)
[2023-08-30 05:08] LABS: Albumin 3.4 g/dL (3.2-4.8); Aspartate Aminotransferase 58 U/L (13-40)
[2023-08-30 05:09] LABS: Bilirubin, Total 0.8 mg/dL (0.2-1.0); Phosphorus 7.3 mg/dL (2.4-5.1); Total Protein 5.6 g/dL (5.7-8.2)
[2023-08-30 05:23] LABS: Alanine Aminotransferase 13 U/L (7-40)
[2023-08-30 05:31] LABS: CRP High Sensitivity 5.59 mg/dL (<1.0)
[2023-08-30 07:23] LABS: Base Excess -6.6 mmol/L (-2.0-2.0)
[2023-08-31] VITALS (104 sets, daily range): BP systolic 77–118; BP diastolic 41–82; PULSE 66–91; RESP 18–25; TEMP 97.6–98.1; O2SAT 93–99
[2023-08-31 04:07] LABS: Hematocrit 36.5 % (36.0-46.0); Hemoglobin 12.5 g/dL (12.2-16.2); Mean Corpuscular Hemoglobin 32.7 pg (28.0-32.0); Mean Corpuscular Hgb Conc. 34.3 g/dL (32.0-36.0); Mean Corpuscular Volume 95.5 fL (80.0-100.0); Red Blood Cells 3.82 10^6/uL (4.0-5.20); White Blood Cell 8.2 10^3/uL (4.4-10.8)
[2023-08-31 04:15] LABS: Basophils % (manual) 0 (0.0-2.0); Blast Cells 0; Metamyelocytes % 0; Myelocytes % 0; Promyelocytes % 0; Reactive Lymphocytes 0
[2023-08-31 04:27] LABS: Alanine Aminotransferase 13 U/L (7-40); Albumin 3.4 g/dL (3.2-4.8); Alkaline Phosphatase 69 U/L (46-116); Anion Gap 13 (5-15); Aspartate Aminotransferase 61 U/L (13-40); BUN/Creatinine Ratio 14.1 (10.0-20.0); Blood Urea Nitrogen 72 mg/dL (9-23); Calcium 9.1 mg/dL (8.7-10.4); Carbon Dioxide 20 mmol/L (20-30); Chloride 96 mmol/L (98-107); Glucose 100 mg/dL (74-106); Lipase 291 U/L (12-53); Magnesium 2.1 mg/dL (1.6-2.6); Phosphorus 7.1 mg/dL (2.4-5.1); Potassium 3.3 mmol/L (3.5-5.1); Sodium 129 mmol/L (136-145)
[2023-08-31 04:28] LABS: Bilirubin, Total 0.7 mg/dL (0.2-1.0); Total Protein 5.8 g/dL (5.7-8.2)
[2023-08-31 06:54] LABS: Band Neutrophils % (manual) 4; Eosinophils % (manual) 1 (0-7); Lymphocytes % (manual) 11 (10.0-50.0); Monocytes % (manual) 6 (0-12)
[2023-08-31 06:55] LABS: Platelet Estimate Decreased
[2023-08-31 07:33] LABS: Base Excess -4.5 mmol/L (-2.0-2.0)
[2023-08-31] MEDS: POTASSIUM CHLORIDE 20 MEQ, LIDOCAINE 1% (LOCAL ANESTH.) 2 ML in SODIUM CHL 0.9% 100 ML IV ONE (09:54)
[2023-08-31] MEDS: CLOPIDOGREL BISULFATE 75 MG TAB PO ONE (14:17)
[2023-08-31] MEDS: ASPirin 81 mg TAB PO ONE (14:17)
[2023-08-31] MEDS ORDERED: POTASSIUM CHL 20MEQ/100ML 100 ML IV ONE (16:00)
[2023-08-31] MEDS: HEPARIN SODIUM (PORCINE) 5000 UNITS/ML 1ML VIAL IV ONE (22:06)
[2023-09-01] VITALS (107 sets, daily range): BP systolic 95–131; BP diastolic 39–82; PULSE 78–112; RESP 22–24; TEMP 98.4–99; O2SAT 92–99
[2023-09-01 04:36] LABS: Alanine Aminotransferase 14 U/L (7-40); Albumin 3.5 g/dL (3.2-4.8); Alkaline Phosphatase 75 U/L (46-116); Anion Gap 13 (5-15); Aspartate Aminotransferase 73 U/L (13-40); BUN/Creatinine Ratio 14.9 (10.0-20.0); Blood Urea Nitrogen 73 mg/dL (9-23); Calcium 9.2 mg/dL (8.7-10.4); Carbon Dioxide 20 mmol/L (20-30); Chloride 96 mmol/L (98-107); Glucose 111 mg/dL (74-106); Potassium 3.4 mmol/L (3.5-5.1); Sodium 129 mmol/L (136-145)
[2023-09-01 04:37] LABS: Bilirubin, Total 0.7 mg/dL (0.2-1.0); Phosphorus 6.9 mg/dL (2.4-5.1)
[2023-09-01 04:39] LABS: INR 1.05 (0.9-1.15)
[2023-09-01 04:52] LABS: Hematocrit 36.6 % (36.0-46.0); Hemoglobin 12.4 g/dL (12.2-16.2); Mean Corpuscular Hemoglobin 32.4 pg (28.0-32.0); Mean Corpuscular Volume 95.5 fL (80.0-100.0); Red Blood Cells 3.83 10^6/uL (4.0-5.20); Red Cell Distribution Width 14.2 % (11.8-14.3); White Blood Cell 10.4 10^3/uL (4.4-10.8)
[2023-09-01 05:00] LABS: Band Neutrophils % (manual) 0; Basophils % (manual) 0 (0.0-2.0); Blast Cells 0; Metamyelocytes % 0; Myelocytes % 0; Promyelocytes % 0; Reactive Lymphocytes 0
[2023-09-01 06:10] LABS: Eosinophils % (manual) 1 (0-7); Lymphocytes % (manual) 6 (10.0-50.0); Monocytes % (manual) 5 (0-12); Platelet Estimate Adequate
[2023-09-01 07:21] LABS: Base Excess -4.4 mmol/L (-2.0-2.0)
[2023-09-01] MEDS: POTASSIUM CHL 20MEQ/100ML 100 ML IV ONE (08:29)
[2023-09-01] MEDS: LIDOCAINE 2%HCL (LOCAL ANESTH.) INJ 20ML MDV ONE (15:52)
[2023-09-01] MEDS: HEPARIN SODIUM (PORCINE) 5000 UNITS/ML 1ML VIAL ONE (16:08)
[2023-09-01] MEDS: IODIXANOL 320MG/ML 100ML BTL IV ONE (16:18)
[2023-09-02] VITALS (108 sets, daily range): BP systolic 89–118; BP diastolic 39–79; PULSE 62–86; RESP 9–24; TEMP 97.6–98.4; O2SAT 90–99
[2023-09-02] MEDS: Jevity 1.2 Cal/Fiber 1 Liter GT SCH (02:00)
[2023-09-02 04:37] LABS: Hematocrit 34.9 % (36.0-46.0); Mean Corpuscular Hemoglobin 32.6 pg (28.0-32.0); Mean Corpuscular Hgb Conc. 34.3 g/dL (32.0-36.0); Red Blood Cells 3.67 10^6/uL (4.0-5.20); Red Cell Distribution Width 14.1 % (11.8-14.3); White Blood Cell 9.1 10^3/uL (4.4-10.8)
[2023-09-02 04:48] LABS: Basophils % (manual) 0 (0.0-2.0); Blast Cells 0; Metamyelocytes % 0; Myelocytes % 0; Promyelocytes % 0; Reactive Lymphocytes 0
[2023-09-02 04:56] LABS: Alanine Aminotransferase 12 U/L (7-40); Albumin 3.5 g/dL (3.2-4.8); Alkaline Phosphatase 74 U/L (46-116); Anion Gap 10 (5-15); Aspartate Aminotransferase 73 U/L (13-40); BUN/Creatinine Ratio 16.9 (10.0-20.0); Bilirubin, Total 0.6 mg/dL (0.2-1.0); Calcium 8.9 mg/dL (8.7-10.4); Carbon Dioxide 22 mmol/L (20-30); Chloride 97 mmol/L (98-107); Glucose 108 mg/dL (74-106); Magnesium 1.9 mg/dL (1.6-2.6); Phosphorus 6.9 mg/dL (2.4-5.1); Potassium 3.3 mmol/L (3.5-5.1); Sodium 129 mmol/L (136-145)
[2023-09-02 05:30] LABS: Blood Urea Nitrogen 80 mg/dL (9-23)
[2023-09-02] MEDS: POTASSIUM CHL 20MEQ/100ML 100 ML IV ONE ×2 (06:30→08:30)
[2023-09-02 07:29] LABS: Base Excess -3.3 mmol/L (-2.0-2.0)
[2023-09-02 07:37] LABS: Band Neutrophils % (manual) 6; Eosinophils % (manual) 1 (0-7); Lymphocytes % (manual) 10 (10.0-50.0); Monocytes % (manual) 9 (0-12)
[2023-09-02 07:38] LABS: Platelet Estimate Adequate; RBC Morphology Normal
[2023-09-03] VITALS (103 sets, daily range): BP systolic 82–122; BP diastolic 38–63; PULSE 61–100; RESP 22–31; TEMP 97.4–98.7; O2SAT 91–95
[2023-09-03 04:23] LABS: Hematocrit 35.4 % (36.0-46.0); Hemoglobin 12.5 g/dL (12.2-16.2); Mean Corpuscular Hemoglobin 33.2 pg (28.0-32.0); Mean Corpuscular Hgb Conc. 35.4 g/dL (32.0-36.0); Mean Corpuscular Volume 93.6 fL (80.0-100.0); Red Blood Cells 3.78 10^6/uL (4.0-5.20); Red Cell Distribution Width 13.7 % (11.8-14.3); White Blood Cell 10.1 10^3/uL (4.4-10.8)
[2023-09-03 04:26] LABS: Band Neutrophils % (manual) 0; Basophils % (manual) 0 (0.0-2.0); Blast Cells 0; Metamyelocytes % 0; Promyelocytes % 0; Reactive Lymphocytes 0
[2023-09-03 04:43] LABS: Alanine Aminotransferase 11 U/L (7-40); Albumin 3.4 g/dL (3.2-4.8); Alkaline Phosphatase 71 U/L (46-116); Anion Gap 10 (5-15); Aspartate Aminotransferase 68 U/L (13-40); BUN/Creatinine Ratio 18.2 (10.0-20.0); Carbon Dioxide 22 mmol/L (20-30); Chloride 98 mmol/L (98-107); Glucose 121 mg/dL (74-106); Lipase 233 U/L (12-53); Potassium 2.7 mmol/L (3.5-5.1); Sodium 130 mmol/L (136-145)
[2023-09-03 04:44] LABS: Bilirubin, Total 0.6 mg/dL (0.2-1.0); Phosphorus 5.4 mg/dL (2.4-5.1); Total Protein 5.9 g/dL (5.7-8.2)
[2023-09-03 04:59] LABS: Blood Urea Nitrogen 81 mg/dL (9-23)
[2023-09-03 06:31] LABS: Eosinophils % (manual) 1 (0-7); Lymphocytes % (manual) 15 (10.0-50.0); Monocytes % (manual) 11 (0-12); Myelocytes % 1; Platelet Estimate Adequate
[2023-09-03 07:09] LABS: Base Excess -2.9 mmol/L (-2.0-2.0)
[2023-09-03] MEDS: POTASSIUM CHL 20MEQ/100ML 100 ML IV SCH (08:13)
[2023-09-04] VITALS (105 sets, daily range): BP systolic 87–141; BP diastolic 32–73; PULSE 81–112; RESP 12–24; TEMP 97.8–99.3; O2SAT 91–100
[2023-09-04 04:39] LABS: Basophils # (auto) 0 10 ^3/uL (0-0.2); Basophils % (auto) 0.2 % (0.0-2.0); Eosinophils # (auto) 0.2 10 ^3/uL (0-0.8); Eosinophils % (auto) 1.3 % (0.0-7.0); Hematocrit 36.1 % (36.0-46.0); Hemoglobin 12.4 g/dL (12.2-16.2); Lymphocytes # (auto) 0.9 10 ^3/uL (0.4-5.4); Lymphocytes % (auto) 7.3 % (10.0-50.0); Mean Corpuscular Hemoglobin 32.5 pg (28.0-32.0); Mean Corpuscular Hgb Conc. 34.3 g/dL (32.0-36.0); Mean Corpuscular Volume 94.7 fL (80.0-100.0); Monocytes # (auto) 0.8 10 ^3/uL (0-1.3); Monocytes % (auto) 6.3 % (0.0-12.0); Neutrophils # (auto) 10.5 10 ^3/uL (1.6-8.6); Neutrophils % (auto) 84.9 % (37.0-80.0); Red Blood Cells 3.81 10^6/uL (4.0-5.20); Red Cell Distribution Width 13.9 % (11.8-14.3); White Blood Cell 12.3 10^3/uL (4.4-10.8)
[2023-09-04 04:49] LABS: Alanine Aminotransferase 13 U/L (7-40); Albumin 3.7 g/dL (3.2-4.8); Alkaline Phosphatase 87 U/L (46-116); Anion Gap 11 (5-15); Aspartate Aminotransferase 71 U/L (13-40); BUN/Creatinine Ratio 21.2 (10.0-20.0); Carbon Dioxide 23 mmol/L (20-30); Chloride 98 mmol/L (98-107); Glucose 130 mg/dL (74-106); Phosphorus 5.9 mg/dL (2.4-5.1); Potassium 3.4 mmol/L (3.5-5.1); Sodium 132 mmol/L (136-145)
[2023-09-04 04:50] LABS: Bilirubin, Total 0.6 mg/dL (0.2-1.0); Total Protein 6.5 g/dL (5.7-8.2)
[2023-09-04 04:58] LABS: Blood Urea Nitrogen 90 mg/dL (9-23)
[2023-09-04 07:46] LABS: Base Excess -3.7 mmol/L (-2.0-2.0)
[2023-09-04] MEDS: POTASSIUM CHL 20MEQ/100ML 100 ML IV SCH (08:20)
[2023-09-04] MEDS: LEVOTHYROXINE SODIUM 25 MCG TAB PO SCH (10:01)
[2023-09-04] MEDS: LEVOTHYROXINE SODIUM 112 MCG TAB PO SCH (10:01)
[2023-09-04] MEDS: DOXYCYCLINE 100MG/250ML 250 ML IV SCH (13:14)
[2023-09-04] MEDS: IPRATROPIUM BROM 0.5 MG/2.5ML INH SOL NEB SCH (14:42)
[2023-09-04] MEDS ORDERED: POTASSIUM CHL 20MEQ/100ML 100 ML IV ONE (15:30)
[2023-09-04] MEDS: AZTREONAM 1GM INJ 0.5 GM in D5W 5% 50 ML IV SCH (15:51)
[2023-09-04] MEDS: ATORVASTATIN 20 MG TAB PO SCH (21:42)
[2023-09-05] VITALS (109 sets, daily range): BP systolic 87–140; BP diastolic 30–80; PULSE 70–103; RESP 16–26; TEMP 98.2–98.8; O2SAT 88–100
[2023-09-05 04:10] LABS: Hematocrit 35.9 % (36.0-46.0); Hemoglobin 11.9 g/dL (12.2-16.2); Mean Corpuscular Hemoglobin 31.7 pg (28.0-32.0); Mean Corpuscular Hgb Conc. 33.2 g/dL (32.0-36.0); Mean Corpuscular Volume 95.3 fL (80.0-100.0); Red Blood Cells 3.76 10^6/uL (4.0-5.20); White Blood Cell 12.6 10^3/uL (4.4-10.8)
[2023-09-05 04:35] LABS: Alanine Aminotransferase 14 U/L (7-40); Albumin 3.7 g/dL (3.2-4.8); Alkaline Phosphatase 90 U/L (46-116); Anion Gap 11 (5-15); Aspartate Aminotransferase 72 U/L (13-40); BUN/Creatinine Ratio 26.3 (10.0-20.0); Bilirubin, Total 0.6 mg/dL (0.2-1.0); Calcium 8.7 mg/dL (8.7-10.4); Carbon Dioxide 24 mmol/L (20-30); Chloride 98 mmol/L (98-107); Glucose 173 mg/dL (74-106); Phosphorus 5.4 mg/dL (2.4-5.1); Potassium 3.3 mmol/L (3.5-5.1); Sodium 133 mmol/L (136-145); Total Protein 6.5 g/dL (5.7-8.2)
[2023-09-05 04:52] LABS: Basophils % (manual) 0 (0.0-2.0); Blast Cells 0; Promyelocytes % 0; Reactive Lymphocytes 0
[2023-09-05 04:57] LABS: Blood Urea Nitrogen 100 mg/dL (9-23)
[2023-09-05] MEDS: fentaNYL Drip 2500mCg/250mlNS 250 ML IV SCH (06:20)
[2023-09-05 07:03] LABS: Band Neutrophils % (manual) 3; Eosinophils % (manual) 1 (0-7); Lymphocytes % (manual) 9 (10.0-50.0); Metamyelocytes % 1; Monocytes % (manual) 6 (0-12); Myelocytes % 1; Platelet Estimate Adequate
[2023-09-05] MEDS: POTASSIUM CHL 20MEQ/100ML 100 ML IV ONE ×2 (08:23→08:59)
[2023-09-05] MEDS ORDERED: FLUCONAZOLE 200MG/100ML 100 ML IV ONE (16:45)
[2023-09-05 18:31] LABS: Urine Bacteria NONE SEEN /hpf (None Seen); Urine Blood 3+ /uL (Negative); Urine Clarity CLOUDY (Clear); Urine Color Yellow (Yellow); Urine Protein, UAD 2+ (Negative); Urine Specific Gravity 1.018 (1.001-1.035); Urine Urobilinogen Normal (Negative); Urine WBC 290 /hpf (0 - 5); Urine WBC Clumps PRESENT /hpf (None Seen); Urine pH 5.5 (5.0-8.0)
[2023-09-05] MEDS: FLUCONAZOLE 200MG/100ML 100 ML IV ONE (18:44)
[2023-09-05] MEDS: AMINO ACID INFUSION IN D10W 1,000 ML IV SCH (21:00)
[2023-09-06] VITALS (103 sets, daily range): BP systolic 97–139; BP diastolic 51–79; PULSE 83–131; RESP 17–42; TEMP 98.2–98.8; O2SAT 90–97
[2023-09-06 04:24] LABS: Hematocrit 36.4 % (36.0-46.0); Mean Corpuscular Hemoglobin 31.8 pg (28.0-32.0); Mean Corpuscular Hgb Conc. 32.8 g/dL (32.0-36.0); Mean Corpuscular Volume 96.8 fL (80.0-100.0); Red Blood Cells 3.76 10^6/uL (4.0-5.20); Red Cell Distribution Width 14.4 % (11.8-14.3); White Blood Cell 15.5 10^3/uL (4.4-10.8)
[2023-09-06 04:37] LABS: INR 1.15 (0.9-1.15); Partial Thromboplastin Time 33.3 SEC (24.5-34.5)
[2023-09-06 04:39] LABS: Band Neutrophils % (manual) 0; Basophils % (manual) 0 (0.0-2.0); Blast Cells 0; Eosinophils % (manual) 0 (0-7); Metamyelocytes % 0; Promyelocytes % 0; Reactive Lymphocytes 0
[2023-09-06 04:46] LABS: Alanine Aminotransferase 25 U/L (7-40); Albumin 3.7 g/dL (3.2-4.8); Alkaline Phosphatase 87 U/L (46-116); Anion Gap 9 (5-15); Aspartate Aminotransferase 82 U/L (13-40); BUN/Creatinine Ratio 27.1 (10.0-20.0); Calcium 9.4 mg/dL (8.7-10.4); Carbon Dioxide 24 mmol/L (20-30); Chloride 100 mmol/L (98-107); Glucose 139 mg/dL (74-106); Potassium 3.5 mmol/L (3.5-5.1); Sodium 133 mmol/L (136-145)
[2023-09-06 04:47] LABS: Bilirubin, Total 0.6 mg/dL (0.2-1.0); Total Protein 6.7 g/dL (5.7-8.2)
[2023-09-06 05:06] LABS: Blood Urea Nitrogen 86 mg/dL (9-23)
[2023-09-06 08:05] LABS: Base Excess -2.5 mmol/L (-2.0-2.0)
[2023-09-06 09:11] LABS: Lymphocytes % (manual) 12 (10.0-50.0); Monocytes % (manual) 7 (0-12); Myelocytes % 1; Platelet Estimate Adequate
[2023-09-06] MEDS: FLUCONAZOLE 200MG/100ML 100 ML IV SCH (09:14)
[2023-09-06] MEDS: POTASSIUM CHL 20MEQ/100ML 100 ML IV ONE (09:14)
[2023-09-06] MEDS ORDERED: FLUCONAZOLE 200MG/100ML 100 ML IV SCH (10:00)
[2023-09-06] MEDS: AMIODARONE 450mg/250ml AE 250 ML IV ONE (10:35)
[2023-09-06] MEDS: AMIODARONE BOLUS KIT 0 ML IV ONE (10:35)
[2023-09-06] MEDS ORDERED: LIDOCAINE 2% JELLY 11ml (GLYDO) ONE (12:50)
[2023-09-06] MEDS ORDERED: LIDOCAINE 2%HCL (LOCAL ANESTH.) INJ 20ML MDV ONE (12:50)
[2023-09-06] MEDS ORDERED: EPINEPHrine HCL 1 MG/1 ML AMP ONE (12:50)
[2023-09-06] MEDS ORDERED: GLYCOPYRROLATE 0.2 MG/ML 1ML VIAL ONE (12:51)
[2023-09-06] MEDS ORDERED: HEPARIN SODIUM (PORCINE) 5000 UNITS/ML 1ML VIAL IV ONE ×2 (14:00→14:30)
[2023-09-06] MEDS ORDERED: HEPARIN DRIP/D5W 100UNITS/ML 250 ML IV SCH ×2 (14:00→14:30)
[2023-09-06] MEDS: AMIODARONE 450mg/250ml AE 250 ML IV SCH ×2 (14:31→20:45)
[2023-09-06 14:33] LABS: Basophils # (auto) 0.1 10 ^3/uL (0-0.2); Basophils % (auto) 0.4 % (0.0-2.0); Eosinophils # (auto) 0.1 10 ^3/uL (0-0.8); Eosinophils % (auto) 0.4 % (0.0-7.0); Hematocrit 36.3 % (36.0-46.0); Hemoglobin 12.2 g/dL (12.2-16.2); Lymphocytes % (auto) 5.9 % (10.0-50.0); Mean Corpuscular Hemoglobin 32.2 pg (28.0-32.0); Mean Corpuscular Hgb Conc. 33.5 g/dL (32.0-36.0); Mean Corpuscular Volume 95.9 fL (80.0-100.0); Monocytes # (auto) 0.9 10 ^3/uL (0-1.3); Monocytes % (auto) 5.2 % (0.0-12.0); Neutrophils # (auto) 15.3 10 ^3/uL (1.6-8.6); Neutrophils % (auto) 88.1 % (37.0-80.0); Red Blood Cells 3.78 10^6/uL (4.0-5.20); Red Cell Distribution Width 14.1 % (11.8-14.3); White Blood Cell 17.4 10^3/uL (4.4-10.8)
[2023-09-06 14:51] LABS: INR 1.14 (0.9-1.15); Partial Thromboplastin Time 31.7 SEC (24.5-34.5); Prothrombin Time 11.9 sec (9.3-11.8)
[2023-09-07] VITALS (109 sets, daily range): BP systolic 80–128; BP diastolic 41–69; PULSE 73–107; RESP 12–25; TEMP 97.7–98.6; O2SAT 87–97
[2023-09-07 03:57] LABS: Hematocrit 35.1 % (36.0-46.0); Hemoglobin 11.7 g/dL (12.2-16.2); Mean Corpuscular Hemoglobin 31.7 pg (28.0-32.0); Mean Corpuscular Hgb Conc. 33.2 g/dL (32.0-36.0); Mean Corpuscular Volume 95.4 fL (80.0-100.0); Red Blood Cells 3.68 10^6/uL (4.0-5.20); Red Cell Distribution Width 14.2 % (11.8-14.3); White Blood Cell 20.3 10^3/uL (4.4-10.8)
[2023-09-07 04:06] LABS: Basophils % (manual) 0 (0.0-2.0); Blast Cells 0; Eosinophils % (manual) 0 (0-7); Metamyelocytes % 0; Myelocytes % 0; Promyelocytes % 0; Reactive Lymphocytes 0
[2023-09-07 04:22] LABS: Alanine Aminotransferase 34 U/L (7-40); Albumin 3.7 g/dL (3.2-4.8); Alkaline Phosphatase 93 U/L (46-116); Anion Gap 8 (5-15); Aspartate Aminotransferase 104 U/L (13-40); BUN/Creatinine Ratio 28.6 (10.0-20.0); Blood Urea Nitrogen 79 mg/dL (9-23); Calcium 9.4 mg/dL (8.7-10.4); Carbon Dioxide 24 mmol/L (20-30); Chloride 99 mmol/L (98-107); Glucose 121 mg/dL (74-106); Magnesium 1.9 mg/dL (1.6-2.6); Potassium 3.9 mmol/L (3.5-5.1); Sodium 131 mmol/L (136-145)
[2023-09-07 04:23] LABS: Bilirubin, Total 0.7 mg/dL (0.2-1.0); Phosphorus 5.1 mg/dL (2.4-5.1); Total Protein 6.8 g/dL (5.7-8.2)
[2023-09-07 06:20] LABS: Band Neutrophils % (manual) 2; Lymphocytes % (manual) 6 (10.0-50.0); Monocytes % (manual) 6 (0-12); Platelet Estimate Adequate
[2023-09-07 07:25] LABS: Base Excess -2.5 mmol/L (-2.0-2.0)
[2023-09-07] MEDS ORDERED: NALOXONE HCL 0.4 MG/ML VIAL ONE ×2 (08:29→08:31)
[2023-09-07] MEDS ORDERED: FLUMAZENIL 0.1 MG/ML INJ 10ML MDV IV ONE ×2 (08:29→08:31)
[2023-09-07] MEDS ORDERED: LIDOCAINE 2% JELLY 11ml (GLYDO) ONE (08:29)
[2023-09-07] MEDS ORDERED: LIDOCAINE 2%HCL (LOCAL ANESTH.) INJ 20ML MDV ONE (08:31)
[2023-09-07] MEDS ORDERED: SODIUM CHLORIDE LOCK 10 ML ONE (08:31)
[2023-09-07] MEDS ORDERED: EPINEPHrine HCL 1 MG/1 ML AMP ONE (08:32)
[2023-09-07] MEDS ORDERED: GLYCOPYRROLATE 0.2 MG/ML 1ML VIAL ONE (08:32)
[2023-09-07] MEDS ORDERED: fentaNYL CITRATE 100 MCG/2 ML VL ONE (08:33)
[2023-09-07] MEDS: MIDAZOLAM HCL 5 MG/ML-1ML VIAL ONE (09:06)
[2023-09-07] MEDS: ROCURONIUM 10MG/ML 10ML VIAL IV ONE (09:15)
[2023-09-07] MEDS: CEFEPIME 2GM/50ML NS 50 ML IV SCH (11:52)
[2023-09-08] VITALS (111 sets, daily range): BP systolic 99–166; BP diastolic 50–91; PULSE 64–85; RESP 15–22; TEMP 97.5–98.1; O2SAT 82–100
[2023-09-08 04:06] LABS: Hematocrit 32.9 % (36.0-46.0); Mean Corpuscular Hemoglobin 31.8 pg (28.0-32.0); Mean Corpuscular Hgb Conc. 33.3 g/dL (32.0-36.0); Mean Corpuscular Volume 95.5 fL (80.0-100.0); Red Blood Cells 3.45 10^6/uL (4.0-5.20); White Blood Cell 13.7 10^3/uL (4.4-10.8)
[2023-09-08 04:15] LABS: Basophils % (manual) 0 (0.0-2.0); Blast Cells 0; Metamyelocytes % 0; Myelocytes % 0; Promyelocytes % 0; Reactive Lymphocytes 0
[2023-09-08 04:16] LABS: Anion Gap 9 (5-15); Carbon Dioxide 24 mmol/L (20-30); Chloride 102 mmol/L (98-107); Potassium 3.4 mmol/L (3.5-5.1); Sodium 135 mmol/L (136-145)
[2023-09-08 04:17] LABS: Calcium 9.8 mg/dL (8.7-10.4)
[2023-09-08 04:22] LABS: BUN/Creatinine Ratio 34.2 (10.0-20.0); Blood Urea Nitrogen 79 mg/dL (9-23); Glucose 112 mg/dL (74-106)
[2023-09-08 04:23] LABS: Magnesium 1.9 mg/dL (1.6-2.6)
[2023-09-08 04:56] LABS: Band Neutrophils % (manual) 2; Eosinophils % (manual) 4 (0-7); Lymphocytes % (manual) 8 (10.0-50.0); Monocytes % (manual) 7 (0-12); Platelet Estimate Adequate
[2023-09-08 08:05] LABS: Base Excess -0.1 mmol/L (-2.0-2.0)
[2023-09-08] MEDS: POTASSIUM CHL 20MEQ/100ML 100 ML IV ONE (08:14)
[2023-09-08] MEDS ORDERED: AMIODARONE HCL 200 MG TAB PO ONE (18:30)
[2023-09-08] MEDS: AMIODARONE HCL 200 MG TAB PO ONE (19:36)
[2023-09-08] MEDS: AMIODARONE HCL 200 MG TAB PO SCH (22:42)
[2023-09-09] VITALS (82 sets, daily range): BP systolic 118–181; BP diastolic 66–100; PULSE 80–99; RESP 13–27; TEMP 97.1–98.8; O2SAT 92–97
[2023-09-09 07:42] LABS: Hematocrit 38.8 % (36.0-46.0); Hemoglobin 12.6 g/dL (12.2-16.2); Mean Corpuscular Hemoglobin 31.6 pg (28.0-32.0); Mean Corpuscular Hgb Conc. 32.4 g/dL (32.0-36.0); Mean Corpuscular Volume 97.5 fL (80.0-100.0); Red Blood Cells 3.98 10^6/uL (4.0-5.20); Red Cell Distribution Width 14.2 % (11.8-14.3); White Blood Cell 13.5 10^3/uL (4.4-10.8)
[2023-09-09 07:56] LABS: Base Excess 1.1 mmol/L (-2.0-2.0)
[2023-09-09 07:56] LABS: Chloride 101 mmol/L (98-107); Potassium 3.8 mmol/L (3.5-5.1); Sodium 136 mmol/L (136-145)
[2023-09-09 07:57] LABS: Anion Gap 11 (5-15); Calcium 10.4 mg/dL (8.7-10.4); Carbon Dioxide 24 mmol/L (20-30)
[2023-09-09 08:02] LABS: BUN/Creatinine Ratio 26.7 (10.0-20.0); Glucose 117 mg/dL (74-106)
[2023-09-09 08:26] LABS: Basophils % (manual) 0 (0.0-2.0); Blast Cells 0; Eosinophils % (manual) 0 (0-7); Reactive Lymphocytes 0
[2023-09-09 08:29] LABS: Blood Urea Nitrogen 47 mg/dL (9-23)
[2023-09-09] MEDS ORDERED: AMIODARONE HCL 200 MG TAB PO SCH (10:00)
[2023-09-09 11:10] LABS: Band Neutrophils % (manual) 4; Lymphocytes % (manual) 6 (10.0-50.0); Metamyelocytes % 2; Monocytes % (manual) 9 (0-12); Myelocytes % 1; Promyelocytes % 2
[2023-09-09 11:11] LABS: Platelet Estimate Adequate
[2023-09-09] MEDS: DOCUSATE ORAL LIQUID 100 MG/10 ML UD GT PRN (11:14)
[2023-09-10] VITALS (104 sets, daily range): BP systolic 117–166; BP diastolic 70–98; PULSE 86–104; RESP 15–30; TEMP 98.1–99.7; O2SAT 89–100
[2023-09-10 04:21] LABS: Anion Gap 8 (5-15); Carbon Dioxide 25 mmol/L (20-30); Chloride 103 mmol/L (98-107); Potassium 3.7 mmol/L (3.5-5.1); Sodium 136 mmol/L (136-145)
[2023-09-10 04:22] LABS: Calcium 10.5 mg/dL (8.7-10.4)
[2023-09-10 04:27] LABS: BUN/Creatinine Ratio 26.1 (10.0-20.0); Blood Urea Nitrogen 40 mg/dL (9-23); Glucose 139 mg/dL (74-106)
[2023-09-10 04:28] LABS: Magnesium 1.9 mg/dL (1.6-2.6)
[2023-09-10 04:29] LABS: Basophils # (auto) 0.1 10 ^3/uL (0-0.2); Basophils % (auto) 0.5 % (0.0-2.0); Eosinophils # (auto) 0.2 10 ^3/uL (0-0.8); Eosinophils % (auto) 1.5 % (0.0-7.0); Hematocrit 37.2 % (36.0-46.0); Hemoglobin 12.2 g/dL (12.2-16.2); Lymphocytes # (auto) 1.3 10 ^3/uL (0.4-5.4); Lymphocytes % (auto) 9.9 % (10.0-50.0); Mean Corpuscular Hemoglobin 31.8 pg (28.0-32.0); Mean Corpuscular Hgb Conc. 32.8 g/dL (32.0-36.0); Monocytes % (auto) 7.6 % (0.0-12.0); Neutrophils # (auto) 10.5 10 ^3/uL (1.6-8.6); Neutrophils % (auto) 80.5 % (37.0-80.0); Nucleated Red Blood Cells % 0.1 %; Red Blood Cells 3.83 10^6/uL (4.0-5.20); White Blood Cell 13.1 10^3/uL (4.4-10.8)
[2023-09-10 07:49] LABS: Base Excess 2.2 mmol/L (-2.0-2.0)
[2023-09-10] MEDS: CLINDAMYCIN 300MG IV 50 ML IV ONE (17:37)
[2023-09-10] MEDS: CLINDAMYCIN 300MG IV 50 ML IV SCH (22:05)
[2023-09-11] VITALS (106 sets, daily range): BP systolic 126–175; BP diastolic 74–107; PULSE 75–100; RESP 20–31; TEMP 98.2–99.5; O2SAT 97–100
[2023-09-11] MEDS: CEFEPIME 2GM/50ML NS 50 ML IV SCH (01:24)
[2023-09-11 04:50] LABS: Basophils # (auto) 0.1 10 ^3/uL (0-0.2); Basophils % (auto) 0.6 % (0.0-2.0); Eosinophils # (auto) 0.3 10 ^3/uL (0-0.8); Eosinophils % (auto) 1.7 % (0.0-7.0); Hematocrit 36.8 % (36.0-46.0); Hemoglobin 12.3 g/dL (12.2-16.2); Lymphocytes # (auto) 1.3 10 ^3/uL (0.4-5.4); Lymphocytes % (auto) 8.7 % (10.0-50.0); Mean Corpuscular Hemoglobin 31.9 pg (28.0-32.0); Mean Corpuscular Hgb Conc. 33.4 g/dL (32.0-36.0); Mean Corpuscular Volume 95.4 fL (80.0-100.0); Monocytes # (auto) 1.1 10 ^3/uL (0-1.3); Monocytes % (auto) 7.3 % (0.0-12.0); Neutrophils # (auto) 12.2 10 ^3/uL (1.6-8.6); Neutrophils % (auto) 81.7 % (37.0-80.0); Nucleated Red Blood Cells % 0.1 %; Red Blood Cells 3.86 10^6/uL (4.0-5.20); Red Cell Distribution Width 13.9 % (11.8-14.3)
[2023-09-11 04:59] LABS: Alanine Aminotransferase 29 U/L (7-40); Albumin 3.7 g/dL (3.2-4.8); Alkaline Phosphatase 110 U/L (46-116); Anion Gap 12 (5-15); Aspartate Aminotransferase 72 U/L (13-40); BUN/Creatinine Ratio 22.2 (10.0-20.0); Blood Urea Nitrogen 32 mg/dL (9-23); Calcium 10.7 mg/dL (8.7-10.4); Carbon Dioxide 25 mmol/L (20-30); Chloride 103 mmol/L (98-107); Glucose 106 mg/dL (74-106); Magnesium 1.8 mg/dL (1.6-2.6); Potassium 3.2 mmol/L (3.5-5.1); Sodium 140 mmol/L (136-145)
[2023-09-11 05:00] LABS: Bilirubin, Total 0.7 mg/dL (0.2-1.0); Phosphorus 3.4 mg/dL (2.4-5.1)
[2023-09-11 07:22] LABS: Base Excess 2.7 mmol/L (-2.0-2.0)
[2023-09-11] MEDS: POTASSIUM CHL 20MEQ/100ML 100 ML IV SCH ×2 (11:41→16:17)
[2023-09-11] MEDS: CALCIUM ACETATE 667 MG CAP NG SCH (16:14)
[2023-09-11] MEDS: hydrALAZINE HCL 20 MG/ML VL IV PRN (16:14)
[2023-09-12] VITALS (112 sets, daily range): BP systolic 49–172; BP diastolic 32–87; PULSE 76–115; RESP 20–38; TEMP 98.2–100.3; O2SAT 87–100
[2023-09-12 04:09] LABS: Basophils # (auto) 0.1 10 ^3/uL (0-0.2); Basophils % (auto) 0.7 % (0.0-2.0); Eosinophils # (auto) 0.3 10 ^3/uL (0-0.8); Eosinophils % (auto) 2.5 % (0.0-7.0); Hemoglobin 12.2 g/dL (12.2-16.2); Lymphocytes # (auto) 1.2 10 ^3/uL (0.4-5.4); Lymphocytes % (auto) 9.6 % (10.0-50.0); Mean Corpuscular Hemoglobin 32.5 pg (28.0-32.0); Mean Corpuscular Volume 95.6 fL (80.0-100.0); Monocytes # (auto) 0.9 10 ^3/uL (0-1.3); Monocytes % (auto) 7.2 % (0.0-12.0); Neutrophils # (auto) 9.9 10 ^3/uL (1.6-8.6); Red Blood Cells 3.76 10^6/uL (4.0-5.20); White Blood Cell 12.4 10^3/uL (4.4-10.8)
[2023-09-12 04:24] LABS: Chloride 104 mmol/L (98-107); Potassium 3.4 mmol/L (3.5-5.1); Sodium 140 mmol/L (136-145)
[2023-09-12 04:25] LABS: Anion Gap 11 (5-15); Carbon Dioxide 25 mmol/L (20-30)
[2023-09-12 04:26] LABS: Calcium 10.9 mg/dL (8.5-10.1)
[2023-09-12 04:30] LABS: Glucose 127 mg/dL (74-106)
[2023-09-12 04:31] LABS: Blood Urea Nitrogen 29 mg/dL (9-23)
[2023-09-12 04:55] LABS: Magnesium 1.8 mg/dL (1.6-2.6)
[2023-09-12] MEDS: MAGNESIUM SULFATE 1GM/100ML 100 ML IV ONE ×2 (06:37→17:00)
[2023-09-12 07:08] LABS: Base Excess 1.6 mmol/L (-2.0-2.0)
[2023-09-12] MEDS: POTASSIUM CHL 20MEQ/100ML 100 ML IV ONE ×2 (08:26→12:30)
[2023-09-12] MEDS: CLOPIDOGREL BISULFATE 75 MG TAB PO SCH (09:39)
[2023-09-12] MEDS ORDERED: POTASSIUM EFFERVESENT TAB 25 MEQ PO ONE (09:45)
[2023-09-12] MEDS ORDERED: MAGNESIUM SULFATE 1GM/100ML 100 ML IV SCH (10:00)
[2023-09-12] MEDS: LIDOCAINE 2%HCL (LOCAL ANESTH.) INJ 20ML MDV ONE (13:28)
[2023-09-12] MEDS: IODIXANOL 320MG/ML 100ML BTL IV ONE (13:29)
[2023-09-12] MEDS: SODIUM CHL 0.9% 50 ML ONE ×2 (13:45→14:44)
[2023-09-12] MEDS: ANGIOMAX 250 MG VIAL IV ONE ×2 (13:45→14:44)
[2023-09-12] MEDS: GLYCOPYRROLATE 0.2 MG/ML 1ML VIAL ONE ×2 (13:48→14:43)
[2023-09-12] MEDS: PHENYLEPHRINE IV 0 ML IV ONE (13:50)
[2023-09-12] MEDS: MIDAZOLAM HCL 2MG/2ML 2ml VIAL (1mg/ml) ONE (14:09)
[2023-09-12] MEDS: fentaNYL CITRATE 100 MCG/2 ML VL ONE (14:09)
[2023-09-12] MEDS: IOHEXOL 350 MG/ML 100ML IJ ONE (14:32)
[2023-09-12] MEDS ORDERED: Jevity 1.2 Cal/Fiber 1 Liter GT SCH (19:15)
[2023-09-13] VITALS (149 sets, daily range): BP systolic 79–113; BP diastolic 44–70; PULSE 85–126; RESP 19–34; TEMP 98.1–100.3; O2SAT 92–100
[2023-09-13 00:53] LABS: Base Excess -2.5 mmol/L (-2.0-2.0)
[2023-09-13 03:54] LABS: Hematocrit 33.7 % (36.0-46.0); Hemoglobin 10.6 g/dL (12.2-16.2); Mean Corpuscular Hemoglobin 31.7 pg (28.0-32.0); Mean Corpuscular Hgb Conc. 31.4 g/dL (32.0-36.0); Mean Corpuscular Volume 101.1 fL (80.0-100.0); Red Blood Cells 3.33 10^6/uL (4.0-5.20); Red Cell Distribution Width 14.5 % (11.8-14.3)
[2023-09-13 04:02] LABS: Calcium 10.3 mg/dL (8.7-10.4); Chloride 106 mmol/L (98-107); Potassium 4.7 mmol/L (3.5-5.1); Sodium 139 mmol/L (136-145)
[2023-09-13 04:03] LABS: Anion Gap 14 (5-15); Carbon Dioxide 19 mmol/L (20-30)
[2023-09-13 04:09] LABS: BUN/Creatinine Ratio 15.9 (10.0-20.0); Blood Urea Nitrogen 28 mg/dL (9-23); Glucose 136 mg/dL (74-106); Magnesium 2.2 mg/dL (1.6-2.6)
[2023-09-13 04:36] LABS: White Blood Cell 35.7 10^3/uL (4.4-10.8)
[2023-09-13 04:37] LABS: Band Neutrophils % (manual) 0; Basophils % (manual) 0 (0.0-2.0); Blast Cells 0; Metamyelocytes % 0; Myelocytes % 0; Promyelocytes % 0; Reactive Lymphocytes 0
[2023-09-13 04:48] LABS: Eosinophils % (manual) 2 (0-7); Monocytes % (manual) 10 (0-12)
[2023-09-13 04:49] LABS: Lymphocytes % (manual) 12 (10.0-50.0); Macrocytosis Slight; Platelet Estimate Adequate
[2023-09-13] MEDS: SODIUM CHLORIDE 0.9% 500 ML IV ONE (05:52)
[2023-09-13] MEDS: PHENYLEPHRINE IV 250 ML IV SCH (06:29)
[2023-09-13 06:48] LABS: Base Excess -5.5 mmol/L (-2.0-2.0)
[2023-09-13] MEDS ORDERED: LINEZOLID 600MG/300ML 300 ML IV SCH (10:00)
[2023-09-13] MEDS: CLINDAMYCIN 600MG IV 50 ML IV ONE (10:08)
[2023-09-13 10:44] LABS: Urine Bacteria FEW /hpf (None Seen); Urine Blood 3+ /uL (Negative); Urine Clarity HAZY (Clear); Urine Color Yellow (Yellow); Urine Mucus FEW (None Seen); Urine Protein, UAD 2+ (Negative); Urine Urobilinogen Normal (Negative); Urine WBC 95 /hpf (0 - 5); Urine pH 5.5 (5.0-8.0)
[2023-09-13 11:33] LABS: Hemoglobin 9.5 g/dL (12.2-16.2)
[2023-09-13 11:36] LABS: Hematocrit 30.2 % (36.0-46.0)
[2023-09-13 13:06] LABS: Creatinine, Urine 148.95 mg/dL (30.0-125.0)
[2023-09-13 13:07] LABS: Urine Specific Gravity > 1.050 (1.001-1.035)
[2023-09-13] MEDS: CLINDAMYCIN 600MG IV 50 ML IV SCH (13:30)
[2023-09-13] MEDS: SODIUM BICARB 50mEq/50ml Vial 50 ML in SOD CHL 0.45% 1,000 ML IV SCH (13:30)
[2023-09-13] MEDS: NOREPINEPHRINE BITARTRATE 32 MG in SODIUM CHL 0.9% 218 ML IV SCH (14:30)
[2023-09-13] MEDS: PHENYLEPHRINE INJ 80 MG in SODIUM CHL 0.9% 242 ML IV SCH (14:30)
[2023-09-13] MEDS: NOREPINEPHRINE 8 MG/250ML KIT 250 ML IV ONE (17:13)
[2023-09-13] MEDS: PHENYLEPHRINE IV 250 ML IV ONE (17:31)
[2023-09-13 17:46] LABS: Chloride 106 mmol/L (98-107); Potassium 4.9 mmol/L (3.5-5.1); Sodium 139 mmol/L (136-145)
[2023-09-13 17:47] LABS: Anion Gap 11 (5-15); Carbon Dioxide 22 mmol/L (20-30)
[2023-09-13 17:48] LABS: Calcium 9.5 mg/dL (8.7-10.4)
[2023-09-13 17:52] LABS: Glucose 132 mg/dL (74-106)
[2023-09-13 17:53] LABS: BUN/Creatinine Ratio 15.5 (10.0-20.0)
[2023-09-13 17:54] LABS: Blood Urea Nitrogen 42 mg/dL (9-23)
[2023-09-13] MEDS: DAPTOmycin 500 MG in SODIUM CHL 0.9% 50 ML IV SCH (20:37)
[2023-09-13 22:03] LABS: Hemoglobin 7.8 g/dL (12.2-16.2)
[2023-09-13 22:07] LABS: Hematocrit 24.5 % (36.0-46.0)
[2023-09-14] VITALS (62 sets, daily range): BP systolic 70–108; BP diastolic 34–58; PULSE 37–103; RESP 0–28; TEMP 98.3–98.4; O2SAT 10–97
[2023-09-14 04:18] LABS: Hematocrit 22.8 % (36.0-46.0); Hemoglobin 7.4 g/dL (12.2-16.2); Mean Corpuscular Hemoglobin 31.9 pg (28.0-32.0); Mean Corpuscular Hgb Conc. 32.4 g/dL (32.0-36.0); Mean Corpuscular Volume 98.4 fL (80.0-100.0); Red Blood Cells 2.31 10^6/uL (4.0-5.20); Red Cell Distribution Width 14.5 % (11.8-14.3)
[2023-09-14 04:33] LABS: Anion Gap 12 (5-15); Carbon Dioxide 23 mmol/L (20-30); Chloride 105 mmol/L (98-107); Potassium 4.9 mmol/L (3.5-5.1); Sodium 140 mmol/L (136-145)
[2023-09-14 04:34] LABS: Calcium 8.9 mg/dL (8.7-10.4)
[2023-09-14 04:39] LABS: BUN/Creatinine Ratio 15.4 (10.0-20.0); Blood Urea Nitrogen 47 mg/dL (9-23); Glucose 123 mg/dL (74-106)
[2023-09-14 04:52] LABS: White Blood Cell 33.1 10^3/uL (4.4-10.8)
[2023-09-14 04:53] LABS: Basophils % (manual) 0 (0.0-2.0); Blast Cells 0; Metamyelocytes % 0; Myelocytes % 0; Promyelocytes % 0; Reactive Lymphocytes 0
[2023-09-14] MEDS: VASOPRESSIN 20 UNITS in SODIUM CHL 0.9% 99 ML IV SCH (05:30)
[2023-09-14] MEDS: PHENYLEPHRINE IV 250 ML IV ONE (05:32)
[2023-09-14] MEDS: PHENYLEPHRINE HCL 10 MG/ML VL ONE (05:32)
[2023-09-14 06:10] LABS: Anisocytosis Slight; Band Neutrophils % (manual) 1; Eosinophils % (manual) 3 (0-7); Lymphocytes % (manual) 10 (10.0-50.0); Monocytes % (manual) 9 (0-12); Platelet Estimate Adequate
[2023-09-14] MEDS: VASOPRESSIN 20 UNIT/ML ONE (06:11)
[2023-09-14 10:47] LABS: Hematocrit 21.1 % (36.0-46.0)
[2023-09-14 10:52] LABS: Hemoglobin 6.8 g/dL (12.2-16.2)
[2023-09-14] MEDS ORDERED: PHENYLEPHRINE IV 250 ML IV ONE (11:40)
[2023-09-14] MEDS ORDERED: NOREPINEPHRINE 8 MG/250ML KIT 250 ML IV ONE (11:40)
[2023-09-14] MEDS ORDERED: LORazepam 2MG/ML-1ML VIAL IV PRN (12:00)
[2023-09-14] MEDS: MORPHINE SULFATE INJ 2 MG/ml SYRG IV PRN (12:16)
== END 2023-09-14 16:40 | DRG 853 ==
LOC: EDBD 10:06 → ER 10:06 → TELE 15:07 → ICU WEST 18:35
PROVIDERS: ADMIT Internal Medicine; ATTEND Internal Medicine
PROC: 5A1955Z Respiratory Ventilation, Greater than 96 Consecutive Hours (ICD-10-PCS; principal; 2023-08-24)
PROC: 0BH17EZ Insertion of Endotracheal Airway into Trachea, Via Natural or Artificial Opening (ICD-10-PCS; 2023-08-24)
PROC: 027034Z Dilation of Coronary Artery, One Artery with Drug-eluting Intraluminal Device, Percutaneous Approach (ICD-10-PCS; 2023-08-24)
PROC: 06HY33Z Insertion of Infusion Device into Lower Vein, Percutaneous Approach (ICD-10-PCS; 2023-08-24)
PROC: 5A12012 Performance of Cardiac Output, Single, Manual (ICD-10-PCS; 2023-08-24)
PROC: 4A023N7 Measurement of Cardiac Sampling and Pressure, Left Heart, Percutaneous Approach (ICD-10-PCS; 2023-08-24)
PROC: B211YZZ Fluoroscopy of Multiple Coronary Arteries using Other Contrast (ICD-10-PCS; 2023-08-24)
PROC: 02H633Z Insertion of Infusion Device into Right Atrium, Percutaneous Approach (ICD-10-PCS; 2023-08-28)
PROC: B548ZZA Ultrasonography of Superior Vena Cava, Guidance (ICD-10-PCS; 2023-08-28)
PROC: 0JHM3XZ Insertion of Tunneled Vascular Access Device into Left Upper Leg Subcutaneous Tissue and Fascia, Percutaneous Approach (ICD-10-PCS; 2023-09-01)
PROC: 06HY33Z Insertion of Infusion Device into Lower Vein, Percutaneous Approach (ICD-10-PCS; 2023-09-01)
PROC: B54BZZA Ultrasonography of Right Lower Extremity Veins, Guidance (ICD-10-PCS; 2023-09-01)
PROC: B51B1ZA Fluoroscopy of Right Lower Extremity Veins using Low Osmolar Contrast, Guidance (ICD-10-PCS; 2023-09-01)
PROC: 0B9D8ZX Drainage of Right Middle Lung Lobe, Via Natural or Artificial Opening Endoscopic, Diagnostic (ICD-10-PCS; 2023-09-07)
PROC: 037K3DZ Dilation of Right Internal Carotid Artery with Intraluminal Device, Percutaneous Approach (ICD-10-PCS; 2023-09-12)
PROC: B315YZZ Fluoroscopy of Bilateral Common Carotid Arteries using Other Contrast (ICD-10-PCS; 2023-09-12)
PROC: B318YZZ Fluoroscopy of Bilateral Internal Carotid Arteries using Other Contrast (ICD-10-PCS; 2023-09-12)
PROC: B31CYZZ Fluoroscopy of Bilateral External Carotid Arteries using Other Contrast (ICD-10-PCS; 2023-09-12)
DX: A41.9 Sepsis, unspecified organism (principal); I21.4 Non-ST elevation (NSTEMI) myocardial infarction; R65.21 Severe sepsis with septic shock; J96.02 Acute respiratory failure with hypercapnia; J96.01 Acute respiratory failure with hypoxia; I50.43 Acute on chronic combined systolic (congestive) and diastolic (congestive) heart failure; N17.0 Acute kidney failure with tubular necrosis; J69.0 Pneumonitis due to inhalation of food and vomit; I63.9 Cerebral infarction, unspecified; E87.4 Mixed disorder of acid-base balance; G93.1 Anoxic brain damage, not elsewhere classified; I47.20 Ventricular tachycardia, unspecified; J98.11 Atelectasis; N39.0 Urinary tract infection, site not specified; E87.1 Hypo-osmolality and hyponatremia; M96.A3 Multiple fractures of ribs associated with chest compression and cardiopulmonary resuscitation; Z99.11 Dependence on respirator [ventilator] status; Z68.43 Body mass index [BMI] 50.0-59.9, adult; I46.2 Cardiac arrest due to underlying cardiac condition; I49.01 Ventricular fibrillation; R57.0 Cardiogenic shock; E66.01 Morbid (severe) obesity due to excess calories; E78.5 Hyperlipidemia, unspecified; I25.10 Atherosclerotic heart disease of native coronary artery without angina pectoris; M10.9 Gout, unspecified; R56.9 Unspecified convulsions; E83.39 Other disorders of phosphorus metabolism; Z20.822 Contact with and (suspected) exposure to COVID-19; E03.9 Hypothyroidism, unspecified; R74.01 Elevation of levels of liver transaminase levels; F10.10 Alcohol abuse, uncomplicated; Y90.9 Presence of alcohol in blood, level not specified; E11.9 Type 2 diabetes mellitus without complications; I11.0 Hypertensive heart disease with heart failure; I48.0 Paroxysmal atrial fibrillation; E83.42 Hypomagnesemia; I65.23 Occlusion and stenosis of bilateral carotid arteries; D64.9 Anemia, unspecified; R19.00 Intra-abdominal and pelvic swelling, mass and lump, unspecified site; Z88.0 Allergy status to penicillin; Z79.02 Long term (current) use of antithrombotics/antiplatelets; Z79.82 Long term (current) use of aspirin; Z79.899 Other long term (current) drug therapy; Z98.51 Tubal ligation status; Z87.891 Personal history of nicotine dependence
CPT/HCPCS: 36223; 36224; 36227; 36415; 36556; 36558; 36569; 36600; 37215; 70450; 70551; 71045; 71260; 74177; 76775; 76856; 76942; 77001; 80048; 80053; 80061; 80202; 80307; 80320; 81001; 82140; 82306; 82550; 82570; 82607; 82805; 82962; 83036; 83605; 83690; 83735; 83880; 83970; 84100; 84132; 84156; 84300; 84443; 84478; 84484; 85007; 85014; 85018; 85025; 85027; 85379; 85610; 85730; 86141; 86304; 86803; 86850; 86900; 86901; 87040; 87070; 87076; 87077; 87081; 87086; 87088; 87186; 87205; 87340; 87493; 92941; 92950; 93005; 93306; 93458; 93886; 94002; 94003; 94640; 95819; 96365; 96375; 99152; 99291; C1874; C1894; C9113; G0378; J0171; J0692; J1450; J1815; J2001; J2185; J2250; J2543; J2704; J3480; J3490; J7060; Q9967